=== PATIENT | female | born 1945 | race Caucasian/White ===

== ENCOUNTER → 2016-06-13 | Outpatient (CLI) | payer MEDICARE ==
[2016-06-13 13:14] LABS: Calcium 9.3 mg/dL (8.4-10.2)
[2016-06-14 05:53] LABS: Cardiolipin Ab IgG <9.0 GPL (<15); Cardiolipin Ab IgM 26.1 MPL (<12.5)
== END | disposition home or self-care (01) ==
LOC: LABWHC1 12:29
PROVIDERS: ATTEND Psychiatry & Neurology Neurology
DX: E03.9 Hypothyroidism, unspecified (principal); G24.4 Idiopathic orofacial dystonia
CPT/HCPCS: 36415; 82310; 84439; 84443; 84450; 84460; 86038; 86147

== ENCOUNTER → 2016-10-30 | Outpatient (CLI) | payer MEDICARE ==
[2016-10-30 11:49] LABS: Partial Thromboplastin Time 25.1 sec (22.0-30.0); Prothrombin Time 10.1 sec (9.0-12.0)
== END ==
LOC: LABWHC1 11:05
PROVIDERS: ATTEND Psychiatry & Neurology Neurology
DX: G45.9 Transient cerebral ischemic attack, unspecified (principal); R41.3 Other amnesia
CPT/HCPCS: 36415; 82607; 82746; 83090; 85610; 85730

== ENCOUNTER → 2017-01-31 | Outpatient (CLI) | payer MEDICARE ==
--- NOTE | 2017-01-31 10:04 | CT ---
EXAMINATION TYPE: CT sinus wo con DATE OF EXAM: 01/31/2017 COMPARISON: NONE HISTORY: chronic sinusitis CT DLP: 641.60 mGycm. Automated Exposure Control for Dose Reduction was Utilized. TECHNIQUE: CT scan of the sinuses is performed without contrast, axial images are obtained, coronal r eformatted images are also reviewed. FINDINGS: Dental artifact results in exam. There is a nasal septal deviation. There is very mild mucosal thickening involving air cells. No air-fluid levels. Remaining paranasal s inuses are normal development and aeration. Moderate size marbella bullosa on the left The ostiomeatal complex is patent bilaterally on the coronal images. Visualized portion of mastoid air cells show no abnormal opacification. The globes are intact bilate rally. Intracranial atherosclerotic disease noted. Mild degenerative change noted intracranially. IMPRESSION: 1. Very mild chronic appearing ethmoidal sinusitis.
== END | disposition home or self-care (01) ==
LOC: RADCTMAIN 09:39
PROVIDERS: ATTEND Otolaryngology
DX: J32.2 Chronic ethmoidal sinusitis (principal)
CPT/HCPCS: 70486

== ENCOUNTER → 2017-11-18 | Outpatient (CLI) | payer MEDICARE ==
--- NOTE | 2017-11-18 16:40 | CONS ---
CONSULTATION Consultation for sleep apnea. 72-year-old female patient, who is coming in for sleep apnea evaluation. The patient has seen multiple physicians including Dr. Smalls, Dr. Yap, and Dr. Tafoya. The patient has had chronic nasal congestion and rhinitis and drainage and she has undergone various treatments without any help. She has undergone previous sinus surgery for deviated septum and functional endoscopic sinus surgery. She has been diagnosed having environmental allergies and she was given briefly allergy shots. For now she having excessive rhinitis which is constant and chronic and debilitating and she has had evaluations with ENT without much help in terms of symptomatic control. As part of her workup she has undergone a bronchoscopy and EGD by Dr. Smalls and Dr. Tafoya respectively and findings were essentially negative other than some degree of tracheobronchomalacia. She has chronic cough. She has loud snoring. She has sleep fragmentation, wakes up choking and gasping for air. She has nocturia and she has excessive daytime sleepiness and tiredness during the day. She is going to bed around midnight and waking up at 8 o'clock in the morning. [place] score is currently at 15. No facial pain or recurrent sinus infections. Constant clear postnasal drainage as reported by the patient and her . No exertional dyspnea. No hemoptysis or pleurisy. The patient has no recent weight gain or weight loss. Weight has been stable. She wakes up on multiple occasions throughout the night at least 4-6 times that she can recall either from cough or excessive nasal congestion and mucus buildup in the posterior oropharynx. She sleeps with the head of the bed elevated and she has tried to sleep on her side. PAST MEDICAL HISTORY: 1. Chronic rhinitis. 2. Chronic cough. 3. Tracheobronchomalacia. 4. Chronic sinus disease. 5. Acid reflux. 6. Hyperlipidemia. PAST SURGICAL HISTORY: Includes sinus surgery x2. Appendectomy. Hysterectomy. DRUG ALLERGIES: Not known. She is known to have MULTIPLE OUTDOOR ENVIRONMENTAL ALLERGENS. OUTPATIENT MEDICATION: Include levothyroxine 100 mcg p.o. daily, Zocor 20 mg p.o. daily, Flonase on an as- needed basis. She has also tried omeprazole 20 mg p.o. daily, Singular 10 mg p.o. daily, Juliet 180 mg p.o. daily and Mucinex without much help. SOCIAL HISTORY: Nonsmoker, no history of alcohol, no history of IV drugs. FAMILY HISTORY: Noncontributory. REVIEW OF SYSTEMS: 12-point review of system was done. Positive findings are mentioned above history of present illness. PHYSICAL EXAMINATION: BP is 143/72, pulse 72, respirations 14, temperature 98.2, saturation 98% on room air. Weight is 136, height 61 inches and [place] score 13. BMI 25.2 GENERAL APPEARANCE: Calm, comfortable. Head is atraumatic normocephalic. NECK: Supple. There is no JVD. No goiter. No neck masses. LUNGS: Clear to auscultation. HEART: Sounds regular rhythm. Normal S1, S2. No S3. No murmurs. ABDOMEN: Soft, nontender. No organomegaly. EXTREMITIES: No edema. No cyanosis or clubbing. IMPRESSION: 1. Obstructive sleep apnea suspected currently under investigation. We will proceed with a home sleep study. 2. Chronic cough. 3. Chronic rhinitis and postnasal drainage. 4. Chronic acid reflux. 5. Tracheobronchomalacia. 6. Hypothyroidism. 7. Hyperlipidemia. PLAN: 1. Work with ENT regarding her symptoms of chronic rhinitis. 2. Proceed with a home sleep study to investigate this patient for any symptomatic obstructive sleep apnea and treat accordingly. MMODL / IJN: [id number] /
== END ==
LOC: SLEEP 14:55
PROVIDERS: ATTEND Internal Medicine Critical Care Medicine
DX: G47.33 Obstructive sleep apnea (adult) (pediatric) (principal); R05 Cough; J31.0 Chronic rhinitis; R09.82 Postnasal drip; K21.9 Gastro-esophageal reflux disease without esophagitis; E03.9 Hypothyroidism, unspecified; E78.5 Hyperlipidemia, unspecified; M83.8 Other adult osteomalacia; J39.8 Other specified diseases of upper respiratory tract; Z79.899 Other long term (current) drug therapy; Z91.09 Other allergy status, other than to drugs and biological substances
CPT/HCPCS: 99211

== ENCOUNTER → 2018-02-10 | Outpatient (CLI) | payer MEDICARE ==
--- NOTE | 2018-02-11 14:35 | MM ---
Reason for exam: screening (asymptomatic). Last mammogram was performed 2 years and 8 months ago. History: Patient is postmenopausal. Physical Findings: A clinical breast exam by your physician is recommended on an annual basis and results should be correlated with mammographic findings. MG Screening Mammo w CAD Bilateral CC and MLO view(s) were taken. Prior study comparison: June 23, 2015, bilateral MG screening mammo w CAD. April 15, 2013, bilateral digital screening mammo w/CAD. There are scattered fibroglandular densities. No significant changes when compared with prior studies. ASSESSMENT: Negative, BI-RAD 1 RECOMMENDATION: Routine screening mammogram of both breasts in 1 year.
== END | disposition home or self-care (01) ==
LOC: RADMAMWWP 14:07
PROVIDERS: ATTEND Internal Medicine
DX: Z12.31 Encounter for screening mammogram for malignant neoplasm of breast (principal)
CPT/HCPCS: 77067

== ENCOUNTER → 2018-08-05 | Outpatient (CLI) | payer MEDICARE ==
--- NOTE | 2018-08-05 15:02 | CT ---
EXAMINATION TYPE: CT chest wo con DATE OF EXAM: 08/05/2018 COMPARISON: 01/25/2016 HISTORY: Chronic cough. CT DLP: 459 mGycm. Automated Exposure Control for Dose Reduction was Utilized. TECHNIQUE: CT scan of the thorax is performed without IV contrast. FINDINGS: LUNGS: There is redemonstration of a calcified benign granuloma in the right upper lobe on series 4 i mage 27 laterally unchanged from the prior. The previously seen noncalcified 4 mm pulmonary nodule wi thin the right lower lobe is only vaguely seen on today's examination on series 4 image 37 measuring 2 mm. Given its decreased size in comparison to the prior 16 this is benign. The lungs are grossly cl ear, there is no concerning parenchymal mass or nodule identified. There is no pleural effusion or pneumothorax seen. The tracheobronchial tree is patent. MEDIASTINUM: Lack of IV contrast is noted to limit evaluation for mediastinal and especially hilar ad enopathy. There are no definitive greater than 1 cm hilar or mediastinal lymph nodes. No cardiomega ly or pericardial effusion is seen. OTHER: There are greater than 30 hypoattenuated hepatic lesions some of which 6 criteria for simple c ysts and others are too small to accurately characterize. The largest is seen in segment 8 measuring 1.2 cm relating to a simple cyst. Few of these are appreciated on the prior of 01/25/2016 however give n the high-resolution technique in only partial visualization of the liver without contrast there is suboptimal comparison made. Extensive atherosclerosis of the upper abdominal aorta and its branches i s noted. Benign splenules are seen. Very small hiatal hernia is suspected. Partial visualization of a 1.5 cm probable left renal cyst. Minimal multilevel degenerative changes of the thoracic spine are s een. IMPRESSION: 1. Greater than 30 hypoattenuated hepatic lesions are present some of which represent cysts and other which are too small to accurately characterize. These are not definitively seen on the prior examina tions although there is suboptimal comparison with the prior chest CT given high-resolution noncontra st technique. Recommendation is for three-phase abdominal CT or MR for further assessment. 2. Benign calcified granuloma and benign noncalcified right pulmonary nodules. 3. Suggestion of a small hiatal hernia. 4. Nonobstructing right renal calculus.
== END | disposition home or self-care (01) ==
LOC: RADCTMAIN 14:25
PROVIDERS: ATTEND Internal Medicine
DX: J84.10 Pulmonary fibrosis, unspecified (principal); R91.8 Other nonspecific abnormal finding of lung field; Z88.2 Allergy status to sulfonamides
CPT/HCPCS: 71250

== ENCOUNTER 2018-08-24 11:14 | Inpatient (IN) | payer MEDICARE ==
[2018-08-24] MEDS ORDERED: SODIUM CHLORIDE 0.9% 500 ML 500 ML IV STA (11:19)
--- NOTE | 2018-08-24 11:23 | ED ---
General Adult HPI - General Stated complaint: Weakness, SOB Time Seen by Provider: 08/24/18 11:14 Source: RN notes reviewed - History of Present Illness Initial comments: This is a 73-year-old female who presents emergency Department for generalized weakness. According to the she been unable to walk the last couple days because she was too weak to stand. Patient states she's also short of breath and has been coughing for a few months now with some sputum production. Patient states she has followed up with a office messenger helper but they have not found anything. Patient states she also is coughed up blood on occasion. Patient states a week ago she had diarrhea and was very dark. Patient denies any blood thinners. Patient denies every having been anemic before. Patient denies any chest pain or palpitations. Patient denies any abdominal pain patient denies any current nausea vomiting or diarrhea. Patient denies any headache patient denies numbness weakness. Patient states she does feel lightheaded when she stands however. She denies any recent injury or trauma. - Related Data Home Medications Medication Instructions Recorded Confirmed Aspirin [Adult Low Dose Aspirin EC] 81 mg PO DAILY 11/28/15 08/24/18 Levothyroxine Sodium [Synthroid] 100 mcg PO MOWEFR 11/28/15 08/24/18 Cholecalciferol [Vitamin D3] 2,000 unit PO DAILY 02/06/16 08/24/18 Omeprazole 20 mg PO DAILY 02/06/16 08/24/18 Atorvastatin [Lipitor] 40 mg PO HS 03/24/18 08/24/18 Levothyroxine Sodium 150 mcg PO SUTUTHSA 03/24/18 08/24/18 Mirtazapine [Remeron] 15 mg PO HS 08/24/18 08/24/18 diphenhydrAMINE HCL [Benadryl] 25 mg PO DAILY 08/24/18 08/24/18 Allergies Allergy/AdvReac Type Severity Reaction Status Date / Time Sulfa (Sulfonamide Allergy Unknown Verified 08/24/18 11:55 Antibiotics) Review of Systems ROS Statement: Those systems with pertinent positive or pertinent negative responses have been documented in the HPI. ROS Other: All systems not noted in ROS Statement are negative. Past Medical History Past Medical History: Diabetes Mellitus, GERD/Reflux, Osteoarthritis (OA), Renal Disease, Thyroid Disorder Additional Past Medical History / Comment(s): HAVING CLEAR MUCUS PRODUCTIVE COUGH FOR X 6 MOS,HAVING CT OF LIVER TO ASSESS NODULE, LUNG NODULE,DIABETIC-DIET CONTROLLED-AND 50 # WT LOSS. MIGRAINES. History of Any Multi-Drug Resistant Organisms: None Reported Past Surgical History: Appendectomy, Hysterectomy Additional Past Surgical History / Comment(s): BILATERAL CATARACTS/LENS IMPLANT. DEVIATED SEPTUM X 2. PAIN PROCEDURE (NECK). Past Anesthesia/Blood Transfusion Reactions: No Reported Reaction Additional Past Anesthesia/Blood Transfusion Reaction / Comment(s): HX MULT BLOOD TRANSFUSIONS AT AGE 1 WITHOUT DIFF. Smoking Status: Former smoker - Past Family History Mother Family Medical History: Cancer Additional Family Medical History / Comment(s): LUNG CA. Sister(s) Family Medical History: Cancer Additional Family Medical History / Comment(s): RECTAL Father Family Medical History: Myocardial Infarction ([place]) General Exam - General Exam Comments Initial Comments: GENERAL: Patient is well-developed and well-nourished. Patient is nontoxic and well- hydrated and is in mild distress. ENT: Neck is soft and supple. No significant lymphadenopathy is noted. Oropharynx is clear. Moist mucous membranes. Neck has full range of motion without eliciting any pain. EYES: The sclera were anicteric and conjunctiva were pink and moist. Extraocular movements were intact and pupils were equal round and reactive to light. Eyelids were unremarkable. PULMONARY: Unlabored respirations. Good breath sounds bilaterally. No audible rales rhonchi or wheezing was noted. CARDIOVASCULAR: Patient is tachycardic at about 105 beats a minute ABDOMEN: Soft and nontender with normal bowel sounds. No palpable organomegaly was noted. There is no palpable pulsatile mass. SKIN: Patient's skin is pale NEUROLOGIC: Patient is alert and oriented x3. Cranial nerves II through XII are grossly intact. Motor and sensory are also intact. Normal speech, volume and content. Symmetrical smile. MUSCULOSKELETAL: Normal extremities with adequate strength and full range of motion. No lower extremity swelling or edema. No calf tenderness. LYMPHATICS: No significant lymphadenopathy is noted PSYCHIATRIC: Normal psychiatric evaluation. Course Vital Signs 08/24/18 08/24/18 11:16 11:41 Temperature 97.3 F L Pulse Rate 99 92 Respiratory 18 18 Rate Blood Pressure 135/58 126/61 O2 Sat by Pulse 96 99 Oximetry Medical Decision Making - Medical Decision Making Patient's hemoglobin was 5.4 and she was positive for blood in her stool. I gave the patient 2 units of packed red blood cells. I spoke with some physicians agreed to admit the patient admitted the patient. EKG shows a sinus rhythm with occasional PVC at 90 beats a minute AK interval is 134 QRS is 86 QT interval 412 QTC is 504. Patient's EKG shows no ST segment elevation or depression or T wave abnormalities are noted. - Lab Data Result diagrams: 08/24/18 11:32 08/24/18 11:32 Lab Results 08/24/18 08/24/18 08/24/18 Range/Units 11:32 11:32 11:32 WBC 3.5 L (3.8-10.6) k/uL RBC 1.61 L (3.80-5.40) m/uL Hgb 5.4 L* (11.4-16.0) gm/dL Hct 15.7 L* (34.0-46.0) % MCV 97.4 (80.0-100.0) fL MCH 33.8 (25.0-35.0) pg MCHC 34.7 (31.0-37.0) g/dL RDW 17.3 H (11.5-15.5) % Plt Count 204 (150-450) k/uL Neutrophils % 60 % Lymphocytes % 26 % Monocytes % 7 % Eosinophils % 5 % Basophils % 0 % Neutrophils # 2.1 (1.3-7.7) k/uL Lymphocytes # 0.9 L (1.0-4.8) k/uL Monocytes # 0.2 (0-1.0) k/uL Eosinophils # 0.2 (0-0.7) k/uL Basophils # 0.0 (0-0.2) k/uL Poikilocytosis Slight Anisocytosis Slight Macrocytosis Slight PT (9.0-12.0) sec INR (<1.2) APTT (22.0-30.0) sec D-Dimer (<0.60) mg/L FEU Sodium 137 (137-145) mmol/L Potassium 4.5 (3.5-5.1) mmol/L Chloride 107 (98-107) mmol/L Carbon Dioxide 25 (22-30) mmol/L Anion Gap 5 mmol/L BUN 28 H (7-17) mg/dL Creatinine 0.71 (0.52-1.04) mg/dL Est GFR (CKD-EPI)AfAm >90 (>60 ml/min/1.73 sqM) Est GFR (CKD-EPI)NonAf 84 (>60 ml/min/1.73 sqM) Glucose 189 H (74-99) mg/dL Plasma Lactic Acid Terence 1.2 (0.7-2.0) mmol/L Calcium 8.9 (8.4-10.2) mg/dL Magnesium 1.6 (1.6-2.3) mg/dL Total Bilirubin 0.7 (0.2-1.3) mg/dL AST 21 (14-36) U/L ALT 24 (9-52) U/L Alkaline Phosphatase 42 (38-126) U/L Total Protein 5.3 L (6.3-8.2) g/dL Albumin 3.2 L (3.5-5.0) g/dL Stool Occult Blood (Negative) 08/24/18 08/24/18 Range/Units 11:32 11:32 WBC (3.8-10.6) k/uL RBC (3.80-5.40) m/uL Hgb (11.4-16.0) gm/dL Hct (34.0-46.0) % MCV (80.0-100.0) fL MCH (25.0-35.0) pg MCHC (31.0-37.0) g/dL RDW (11.5-15.5) % Plt Count (150-450) k/uL Neutrophils % % Lymphocytes % % Monocytes % % Eosinophils % % Basophils % % Neutrophils # (1.3-7.7) k/uL Lymphocytes # (1.0-4.8) k/uL Monocytes # (0-1.0) k/uL Eosinophils # (0-0.7) k/uL Basophils # (0-0.2) k/uL Poikilocytosis Anisocytosis Macrocytosis PT 9.6 (9.0-12.0) sec INR 0.9 (<1.2) APTT 22.7 (22.0-30.0) sec D-Dimer 0.47 (<0.60) mg/L FEU Sodium (137-145) mmol/L Potassium (3.5-5.1) mmol/L Chloride (98-107) mmol/L Carbon Dioxide (22-30) mmol/L Anion Gap mmol/L BUN (7-17) mg/dL Creatinine (0.52-1.04) mg/dL Est GFR (CKD-EPI)AfAm (>60 ml/min/1.73 sqM) Est GFR (CKD-EPI)NonAf (>60 ml/min/1.73 sqM) Glucose (74-99) mg/dL Plasma Lactic Acid Terence (0.7-2.0) mmol/L Calcium (8.4-10.2) mg/dL Magnesium (1.6-2.3) mg/dL Total Bilirubin (0.2-1.3) mg/dL AST (14-36) U/L ALT (9-52) U/L Alkaline Phosphatase (38-126) U/L Total Protein (6.3-8.2) g/dL Albumin (3.5-5.0) g/dL Stool Occult Blood Positive H (Negative) Critical Care Time Critical Care Time: Yes Total Critical Care Time: 35 Disposition Clinical Impression: GI bleed, Symptomatic anemia Disposition: ADMITTED IP TO THIS HOSP Referrals: Jl Cooper MD [Primary Care Provider] - 1-2 days Time of Disposition: 11:59
[2018-08-24 11:51] LABS: Anisocytosis Slight; Basophils % (A) 0 %; Eosinophils # (A) 0.2 k/uL (0-0.7); Eosinophils % (A) 5 %; Lymphocytes # (A) 0.9 k/uL (1.0-4.8); Lymphocytes % (A) 26 %; MCH 33.8 pg (25.0-35.0); MCHC 34.7 g/dL (31.0-37.0); MCV 97.4 fL (80.0-100.0); Macrocytosis Slight; Mean Platelet Volume 7.5; Monocytes # (A) 0.2 k/uL (0-1.0); Monocytes % (A) 7 %; Neutrophils # (A) 2.1 k/uL (1.3-7.7); Neutrophils % (A) 60 %; Platelet Count 204 k/uL (150-450); Poikilocytosis Slight; RBC 1.61 m/uL (3.80-5.40); RDW 17.3 % (11.5-15.5); WBC 3.5 k/uL (3.8-10.6)
[2018-08-24 11:52] LABS: HGB 5.4 gm/dL (11.4-16.0)
[2018-08-24 11:53] LABS: HCT 15.7 % (34.0-46.0)
[2018-08-24 11:57] LABS: ALT 24 U/L (9-52); AST 21 U/L (14-36); Albumin 3.2 g/dL (3.5-5.0); Alkaline Phosphatase 42 U/L (38-126); Anion Gap 5 mmol/L; Blood Urea Nitrogen 28 mg/dL (7-17); Calcium 8.9 mg/dL (8.4-10.2); Carbon Dioxide 25 mmol/L (22-30); Chloride 107 mmol/L (98-107); Glucose 189 mg/dL (74-99); Magnesium 1.6 mg/dL (1.6-2.3); Potassium 4.5 mmol/L (3.5-5.1); Sodium 137 mmol/L (137-145); Total Bilirubin 0.7 mg/dL (0.2-1.3); Total Protein 5.3 g/dL (6.3-8.2)
[2018-08-24] MEDS ORDERED: SODIUM CHLORIDE 0.9% 1,000 ML IV ONE (12:00)
[2018-08-24 12:09] LABS: D-Dimer 0.47 mg/L FEU (<0.60); INR 0.9 (<1.2); Partial Thromboplastin Time 22.7 sec (22.0-30.0); Prothrombin Time 9.6 sec (9.0-12.0)
--- NOTE | 2018-08-24 12:30 | XR ---
EXAMINATION TYPE: XR chest 2V DATE OF EXAM: 08/24/2018 COMPARISON: CT chest August 05, 2018. Two-view chest x-ray July 30, 2018. HISTORY: Weakness and shortness of breath. TECHNIQUE: Frontal and lateral views of the chest are obtained. FINDINGS: Overlying EKG leads are seen currently. There is no focal air space opacity, pleural effus ion, or pneumothorax seen. The cardiac silhouette size remains within normal limits with atheroscler otic change in thoracic aorta. Spine is straightened on lateral view. IMPRESSION: No acute cardiopulmonary process.
[2018-08-24] MEDS ORDERED: PANTOPRAZOLE 40 MG/10 ML VIAL IVP ONE (14:22)
--- NOTE | 2018-08-24 16:04 | P.HPIM ---
History of Present Illness H&P Date: 08/24/18 Chief Complaint: black tarry stool 73 year old female with history of GERD, hypothyroid, and history of diverticulosis patient presented to the ED with 4 days history of feeling weak and tired. postural dizziness and fatigue. today she was feeling short of breath and husb and grew more concerned and decided to bring her to the hospital . He also reports productive cough of few months duration , she has been evaluated by ENT and pulmonary , and nothing was found. she had some sinus surgery done at one point and since then she felt that she is having increased bloody drainage at time in her throat. She also reports diarrhea of black color over the past few days multiple times per day, she denies any concerning abd pain , but does report some epigastric discomfort. she admits to taking alot of NSAIDS in the form of advil and motrin , at times on empty stomach , for migraine headaches, she also would take aleve for her joints. She takes 2 baby aspirins on daily basis. Patient reports history of EGD many years ago and was diagnosed with peptic ulcer , hiatal hernia and GERD at that time. she also had a colonoscopy done which did show diverticulosis and polyp. but no malignancy has been reported. She also reports history of odynophagia and dysphagia at times, with recent subjective weight loss In the ED , she was found to be guiac positive, and had a hemoglobin of 5.4. blood transfusion initiated and admitted for GI evaluation and possible EGD otherwise she currently denies any chest pain , fever, chills, nausea, vomiting, or hematamesis . Review of Systems Pertinent positives as noted in HPI. All other systems were reviewed and are negative Past Medical History Past Medical History: Diabetes Mellitus, GERD/Reflux, Osteoarthritis (OA), Renal Disease, Thyroid Disorder Additional Past Medical History / Comment(s): HAVING CLEAR MUCUS PRODUCTIVE COUGH FOR X 6 MOS,HAVING CT OF LIVER TO ASSESS NODULE, LUNG NODULE,DIABETIC-DIET CONTROLLED-AND 50 # WT LOSS. MIGRAINES. History of Any Multi-Drug Resistant Organisms: None Reported Past Surgical History: Appendectomy, Hysterectomy Additional Past Surgical History / Comment(s): BILATERAL CATARACTS/LENS IMPLANT. DEVIATED SEPTUM X 2. PAIN PROCEDURE (NECK). Past Anesthesia/Blood Transfusion Reactions: No Reported Reaction Additional Past Anesthesia/Blood Transfusion Reaction / Comment(s): HX MULT BLOOD TRANSFUSIONS AT AGE 1 WITHOUT DIFF. Smoking Status: Former smoker - Past Family History Mother Family Medical History: Cancer Additional Family Medical History / Comment(s): LUNG CA. Sister(s) Family Medical History: Cancer Additional Family Medical History / Comment(s): RECTAL Father Family Medical History: Myocardial Infarction ([place]) Medications and Allergies Home Medications Medication Instructions Recorded Confirmed Type Aspirin [Adult Low Dose Aspirin EC] 81 mg PO DAILY 11/28/15 08/24/18 History Levothyroxine Sodium [Synthroid] 100 mcg PO MOWEFR 11/28/15 08/24/18 History Cholecalciferol [Vitamin D3] 2,000 unit PO DAILY 02/06/16 08/24/18 History Omeprazole 20 mg PO DAILY 02/06/16 08/24/18 History Atorvastatin [Lipitor] 40 mg PO HS 03/24/18 08/24/18 History Levothyroxine Sodium 150 mcg PO SUTUTHSA 03/24/18 08/24/18 History Mirtazapine [Remeron] 15 mg PO HS 08/24/18 08/24/18 History diphenhydrAMINE HCL [Benadryl] 25 mg PO DAILY 08/24/18 08/24/18 History Allergies Allergy/AdvReac Type Severity Reaction Status Date / Time Sulfa (Sulfonamide Allergy Unknown Verified 08/24/18 11:55 Antibiotics) Physical Exam Vitals: Vital Signs Temp Pulse Resp BP Pulse Ox 08/24/18 11:41 92 18 126/61 99 08/24/18 11:16 97.3 F L 99 18 135/58 96 Intake and Output 08/23/18 08/24/18 08/24/18 22:59 06:59 14:59 Other: Weight 61.235 kg Constitutional: No acute distress, conversant, pleasant Eyes: Anicteric sclerae, moist conjunctiva, no lid-lag Pupils equal round reactive to light ENMT: NC/AT Oropharynx clear, no erythema, or exudates Neck: Supple, FROM, no masses, or JVD No carotid bruits No thyromegaly Lungs: Clear to auscultation Clear to percussion Normal respiratory effort, no accessory muscle use Cardiovascular: Heart regular in rate and rhythm, No murmurs, gallops, or rubs No peripheral edema Abdominal: Soft discomfort to palpation of the epigastric region , no guarding, rebound or rigidity Abdomen moving with respiration Normoactive bowel sounds No hepatomegaly, No splenomegaly No palpable mass No abdominal wall hernia noted Skin: Normal temperature, tone, texture, turgor No induration No subcutaneous nodules No rash, lesions No ulcers Extremities: No digital cyanosis No clubbing Pedal pulses intact and symmetrical Radial pulses intact and symmetrical No calf tenderness Psychiatric: Alert and oriented to person, place and time Appropriate affect fair judgment Neuro Muscles Strength 5/5 in all 4 extremities Sensation to light touch grossly present throughout Cranial nerves II-XII grossly intact No focal sensory deficits Lymphatics: no palpable cervical or supraclavicular , or inguinal lymph nodes Results CBC & Chem 7: 08/24/18 11:32 08/24/18 11:32 Labs: Abnormal Lab Results - Last 24 Hours (Table) 08/24/18 08/24/18 08/24/18 Range/Units 11:32 11:32 11:32 WBC 3.5 L (3.8-10.6) k/uL RBC 1.61 L (3.80-5.40) m/uL Hgb 5.4 L* (11.4-16.0) gm/dL Hct 15.7 L* (34.0-46.0) % RDW 17.3 H (11.5-15.5) % Lymphocytes # 0.9 L (1.0-4.8) k/uL BUN 28 H (7-17) mg/dL Glucose 189 H (74-99) mg/dL Total Protein 5.3 L (6.3-8.2) g/dL Albumin 3.2 L (3.5-5.0) g/dL Stool Occult Blood Positive H (Negative) Crossmatch 08/24/18 Range/Units 11:32 WBC (3.8-10.6) k/uL RBC (3.80-5.40) m/uL Hgb (11.4-16.0) gm/dL Hct (34.0-46.0) % RDW (11.5-15.5) % Lymphocytes # (1.0-4.8) k/uL BUN (7-17) mg/dL Glucose (74-99) mg/dL Total Protein (6.3-8.2) g/dL Albumin (3.5-5.0) g/dL Stool Occult Blood (Negative) Crossmatch See Detail Assessment and Plan Assessment: 73-year-old female with history of and peptic ulcer admitted as an inpatient with anticipated length of stay more than 48 hours due to severe anemia secondary to acute GI blood loss. Seems like patient takes NSAIDs at home on empty stomach at times due to migraine headaches. Patient admitted for blood transfusion IV fluid hydration and GI evaluation for possible EGD. Plan: Acute symptomatic anemia secondary to GI bleeding 2/2 NSAIDs Supportive care Nothing by mouth GI evaluation for possible EGD PPI IV Transfuse 2 units of blood CBC every 8 hours Fall precautions hold aspirin hold NSAIDs IVF hydration Dysphgia and odynophagia at times GI evaluation Low back pain with possible kidney stone pain control with opiates as needed Chronic conditions hypothyroidsim DM dietry controlle,d continue with insulin sliding scale GERD migraine headaches Surrogate decision-maker: Patient CODE STATUS: Full code Discussed with: Patient, ER, RN Anticipated discharge: 48-[address]: home A total of 60 minutes was spent on the care of this complex patient more than 50% of the time was spent in counseling and care coordination.
[2018-08-24 16:53] LABS: Glucose,Whole Blood 119 mg/dL (75-99)
[2018-08-24] MEDS: LEVOTHYROXINE 100 MCG TAB PO SCH (17:07)
[2018-08-24] MEDS: INSULIN ASPART (NovoLOG) 100 UNIT/ML VIAL SQ SCH ×2 (17:08→20:11)
[2018-08-24 17:12] LABS: Anisocytosis Slight; MCHC 34.2 g/dL (31.0-37.0); MCV 93.5 fL (80.0-100.0); Mean Platelet Volume 7.7; Platelet Count 167 k/uL (150-450); Poikilocytosis Slight; RBC 2.09 m/uL (3.80-5.40); RDW 17.5 % (11.5-15.5); WBC 3.7 k/uL (3.8-10.6)
[2018-08-24 17:14] LABS: HCT 19.5 % (34.0-46.0); HGB 6.7 gm/dL (11.4-16.0)
[2018-08-24] MEDS: PANTOPRAZOLE 40 MG/10 ML VIAL IVP SCH (18:11)
[2018-08-24 20:10] LABS: Glucose,Whole Blood 128 mg/dL (75-99)
[2018-08-25 00:50] LABS: Anisocytosis Slight; HCT 23.8 % (34.0-46.0); MCH 33.1 pg (25.0-35.0); MCHC 35.8 g/dL (31.0-37.0); MCV 92.3 fL (80.0-100.0); Mean Platelet Volume 7.5; Platelet Count 158 k/uL (150-450); Poikilocytosis Slight; RBC 2.57 m/uL (3.80-5.40); WBC 4.2 k/uL (3.8-10.6)
[2018-08-25 01:04] LABS: HGB 8.5 gm/dL (11.4-16.0)
[2018-08-25 03:43] LABS: Hemoglobin A1C 6.5 % (4.0-6.0)
[2018-08-25 03:59] LABS: Appearance,Urine Clear (Clear); Bilirubin,Urine Negative (Negative); Blood,Urine Negative (Negative); Color,Urine Light Yellow; Glucose,Urine (UA) Negative (Negative); Ketones,Urine Negative (Negative); Leukocyte Esterase,Urine Negative (Negative); Nitrite,Urine Negative (Negative); Protein,Urine Negative (Negative); Specific Gravity,Urine 1.006 (1.001-1.035); Urobilinogen,Urine <2.0 mg/dL (<2.0)
[2018-08-25] MEDS: INSULIN ASPART (NovoLOG) 100 UNIT/ML VIAL SQ SCH ×4 (06:36→21:32)
[2018-08-25] MEDS: LEVOTHYROXINE 50 MCG TAB PO SCH (06:38)
[2018-08-25 06:55] LABS: Glucose,Whole Blood 130 mg/dL (75-99)
--- NOTE | 2018-08-25 07:33 | P.PN ---
Subjective Progress Note Date: 08/25/18 Principal diagnosis: Follow-up for acute symptomatic anemia secondary to GI blood loss Patient seen and examined no reports of further bloody bowel movements, patient denies any chest pain or trouble breathing. She continues to be nothing by mouth awaiting EGD Objective - Vital Signs Vital signs: Vital Signs Temp 98.0 F 08/25/18 04:00 Pulse 86 08/25/18 04:00 Resp 16 08/25/18 04:00 BP 156/62 08/25/18 04:00 Pulse Ox 97 08/25/18 04:00 Intake & Output 08/24/18 08/25/18 08/25/18 18:59 06:59 18:59 Intake Total 310 310 Output Total 400 Balance 310 -90 Weight 61.235 kg 62.8 kg Intake: Oral 0 Blood Product 310 310 Rc As-1 Unit 310 [id number] Rc As-1 Unit 0 310 [id number] Output: Urine 400 Other: Voiding Method Toilet Toilet # Voids 1 2 - Exam Constitutional: vital signs stable, Not in acute distress, pleasant, conversant Lungs: Clear to auscultation bilaterally, clear to percussion, normal respiratory effort no use of accessory muscles Cardiovascular: Regular rate and rhythm, no murmurs, no gallops, no rubs, no peripheral edema Gastrointestinal: Soft, discomfort and mild tenderness to deep palpation of the epigastric region , bowel sounds positive, no abdominal wall hernias Extremities: No digital cyanosis or clubbing, peripheral pulses palpable and equal over bilateral radial arteries and dorsalis pedis artery, no calf muscle tenderness Psych: Alert, oriented to place, person and time, appropriate affect, intact judgment - Labs CBC & Chem 7: 08/25/18 07:35 08/24/18 11:32 Labs: Abnormal Lab Results - Last 24 Hours (Table) 08/24/18 08/24/18 08/24/18 Range/Units 11:32 11:32 11:32 WBC 3.5 L (3.8-10.6) k/uL RBC 1.61 L (3.80-5.40) m/uL Hgb 5.4 L* (11.4-16.0) gm/dL Hct 15.7 L* (34.0-46.0) % RDW 17.3 H (11.5-15.5) % Lymphocytes # 0.9 L (1.0-4.8) k/uL BUN 28 H (7-17) mg/dL Glucose 189 H (74-99) mg/dL POC Glucose (mg/dL) (75-99) mg/dL Hemoglobin A1c (4.0-6.0) % Total Protein 5.3 L (6.3-8.2) g/dL Albumin 3.2 L (3.5-5.0) g/dL Stool Occult Blood Positive H (Negative) Crossmatch 08/24/18 08/24/18 08/24/18 Range/Units 11:32 16:45 16:48 WBC 3.7 L (3.8-10.6) k/uL RBC 2.09 L (3.80-5.40) m/uL Hgb 6.7 L* (11.4-16.0) gm/dL Hct 19.5 L* (34.0-46.0) % RDW 17.5 H (11.5-15.5) % Lymphocytes # (1.0-4.8) k/uL BUN (7-17) mg/dL Glucose (74-99) mg/dL POC Glucose (mg/dL) 119 H (75-99) mg/dL Hemoglobin A1c (4.0-6.0) % Total Protein (6.3-8.2) g/dL Albumin (3.5-5.0) g/dL Stool Occult Blood (Negative) Crossmatch See Detail 08/24/18 08/24/18 08/25/18 Range/Units 16:48 20:08 00:25 WBC (3.8-10.6) k/uL RBC 2.57 L (3.80-5.40) m/uL Hgb 8.5 L D (11.4-16.0) gm/dL Hct 23.8 L (34.0-46.0) % RDW 17.0 H (11.5-15.5) % Lymphocytes # (1.0-4.8) k/uL BUN (7-17) mg/dL Glucose (74-99) mg/dL POC Glucose (mg/dL) 128 H (75-99) mg/dL Hemoglobin A1c 6.5 H (4.0-6.0) % Total Protein (6.3-8.2) g/dL Albumin (3.5-5.0) g/dL Stool Occult Blood (Negative) Crossmatch 08/25/18 Range/Units 06:35 WBC (3.8-10.6) k/uL RBC (3.80-5.40) m/uL Hgb (11.4-16.0) gm/dL Hct (34.0-46.0) % RDW (11.5-15.5) % Lymphocytes # (1.0-4.8) k/uL BUN (7-17) mg/dL Glucose (74-99) mg/dL POC Glucose (mg/dL) 130 H (75-99) mg/dL Hemoglobin A1c (4.0-6.0) % Total Protein (6.3-8.2) g/dL Albumin (3.5-5.0) g/dL Stool Occult Blood (Negative) Crossmatch Assessment and Plan Assessment: 73-year-old female with history of and peptic ulcer admitted as an inpatient with anticipated length of stay more than 48 hours due to severe anemia secondary to acute GI blood loss. Seems like patient takes NSAIDs at home on empty stomach at times due to migraine headaches. Patient admitted for blood transfusion IV fluid hydration and GI evaluation for possible EGD. 08/25 no further episodes of bloody bowel movements. Patient's hemoglobin today is improved at 8.5 after 2 units blood transfusion yesterday, vital signs stable with slight tachycardia awaiting EGD today continue with PPI, nothing by mouth, supportive care Plan: Acute symptomatic anemia secondary to GI bleeding 2/2 NSAIDs Supportive care Nothing by mouth GI evaluation for possible EGD PPI IV Status post 2 unit blood transfusion, hemoglobin appropriately responded and today's up to 8.5 CBC every 8 hours Fall precautions hold aspirin hold NSAIDs IVF hydration Dysphgia and odynophagia at times GI evaluation Low back pain with possible kidney stone pain control with opiates as needed Chronic conditions hypothyroidsim DM dietry controlle,d continue with insulin sliding scale GERD migraine headaches DVT prophylaxis SCDs due to GI bleeding
[2018-08-25 08:22] LABS: Anisocytosis Slight; HGB 8.4 gm/dL (11.4-16.0); MCH 32.4 pg (25.0-35.0); MCHC 35.1 g/dL (31.0-37.0); MCV 92.3 fL (80.0-100.0); Mean Platelet Volume 7.6; Platelet Count 162 k/uL (150-450); Poikilocytosis Slight; WBC 3.5 k/uL (3.8-10.6)
[2018-08-25] MEDS: PANTOPRAZOLE 40 MG/10 ML VIAL IVP SCH ×2 (08:44→19:54)
--- NOTE | 2018-08-25 11:37 | P.CONS ---
History of Present Illness - Reason for Consult Consult date: 08/25/18 GI bleed anemia Requesting physician: Naima Mckeon - Chief Complaint Symptomatic anemia and melena - History of Present Illness 73-year-old female with a history of migraines maintained on multiple daily NSAIDs and 2 baby aspirin daily PPI presents with symptomatic anemia chest pain shortness of breath weakness 2 days melanotic bowel movements. Admission hemoglobin 5.4 received 2 units of blood present hemoglobin is 8.4. Previous hemoglobin in February was 14 range. No history of GI bleed. History of remote peptic ulcer disease more than 40 years ago. No history of gastric or bowel surgeries. Minimal abdominal discomfort. No emesis. Denies gross hematochezia. EGD colonoscopy 2-3 years ago according to family EGD reported hiatal hernia colonoscopy reported colonic diverticular disease no polyps removed. Review of Systems Constitutional: Denies fever, chills, sweats, weight gain, or loss. Weakness fatigue. HEENT: Negative for migraines, blurred vision or loss, earaches, drainage, tinnitus, oral mucosal lesions, dysphagia, or odynophagia. CARDIAC: Admitted with chest pain denies pain, arrhythmias, or palpitation. RESPIRATORY: Shortness of breath with movement exertion denies of breath, hemoptysis, cough, or sputum production. GI: See HPI for pertinent findings. : Negative for hematuria, urgency, frequency, polyuria, or dysuria. GYNc: Negative vaginal discharge. MUSCULOSKELETAL: Negative for muscle aches, swelling, arthritis, and arthralgias. NEUROLOGIC: Negative for stroke or TIA. ENDOCRINE: Negative for thyroid problems. SKIN: Negative for rash or itching. PSYCHIATRIC: Negative history for depression and anxiety Past Medical History Past Medical History: Diabetes Mellitus, GERD/Reflux, Osteoarthritis (OA), Renal Disease, Thyroid Disorder Additional Past Medical History / Comment(s): HAVING CLEAR MUCUS PRODUCTIVE COUGH FOR X 6 MOS,HAVING CT OF LIVER TO ASSESS NODULE, LUNG NODULE,DIABETIC-DIET CONTROLLED-AND 50 # WT LOSS. MIGRAINES. History of Any Multi-Drug Resistant Organisms: None Reported Past Surgical History: Appendectomy, Hysterectomy Additional Past Surgical History / Comment(s): BILATERAL CATARACTS/LENS IMPLANT. DEVIATED SEPTUM X 2. PAIN PROCEDURE (NECK). Past Anesthesia/Blood Transfusion Reactions: No Reported Reaction Additional Past Anesthesia/Blood Transfusion Reaction / Comm: HX MULT BLOOD TRANSFUSIONS AT AGE 1 WITHOUT DIFF. Smoking Status: Former smoker - Past Family History Mother Family Medical History: Cancer Additional Family Medical History / Comment(s): LUNG CA. Sister(s) Family Medical History: Cancer Additional Family Medical History / Comment(s): RECTAL Father Family Medical History: Myocardial Infarction ([place]) Additional Family Medical History / Comment(s): Father from a [place] in his early 70s. Medications and Allergies Home Medications Medication Instructions Recorded Confirmed Type Aspirin [Adult Low Dose Aspirin EC] 81 mg PO DAILY 11/28/15 08/24/18 History Levothyroxine Sodium [Synthroid] 100 mcg PO MOWEFR 11/28/15 08/24/18 History Cholecalciferol [Vitamin D3] 2,000 unit PO DAILY 02/06/16 08/24/18 History Omeprazole 20 mg PO DAILY 02/06/16 08/24/18 History Atorvastatin [Lipitor] 40 mg PO HS 03/24/18 08/24/18 History Levothyroxine Sodium 150 mcg PO SUTUTHSA 03/24/18 08/24/18 History Mirtazapine [Remeron] 15 mg PO HS 08/24/18 08/24/18 History diphenhydrAMINE HCL [Benadryl] 25 mg PO DAILY 08/24/18 08/24/18 History Allergies Allergy/AdvReac Type Severity Reaction Status Date / Time Sulfa (Sulfonamide Allergy Unknown Verified 08/24/18 11:55 Antibiotics) Physical Exam Vitals: Vital Signs Temp Pulse Pulse Resp BP BP Pulse Ox 08/25/18 11:28 96 16 08/25/18 08:53 96 16 08/25/18 08:52 98.3 F 96 16 144/76 95 08/25/18 04:00 98.0 F 86 16 156/62 97 08/25/18 03:48 84 15 08/25/18 00:00 84 15 08/24/18 23:51 98.3 F 84 15 150/70 98 08/24/18 20:14 98.4 F 89 16 170/56 98 08/24/18 20:12 98.4 F 89 16 170/56 98 08/24/18 20:00 98.4 F 89 16 170/57 98 08/24/18 18:29 98.2 F 92 18 158/71 98 08/24/18 17:59 98.1 F 92 18 160/73 98 08/24/18 17:49 98.9 F 94 18 165/74 98 08/24/18 16:22 98.0 F 85 18 148/0 98 08/24/18 15:12 98.0 F 85 18 148/80 98 08/24/18 14:30 98.2 F 82 18 161/74 98 08/24/18 13:42 98.8 F 91 18 138/59 99 08/24/18 13:12 98.7 F 92 18 129/56 99 08/24/18 13:02 98.7 F 92 18 130/59 99 08/24/18 12:58 98.7 F 93 18 128/59 08/24/18 11:41 92 18 126/61 99 Intake and Output 08/24/18 08/25/18 08/25/18 22:59 06:59 14:59 Intake Total 1220 0 Output Total 600 400 300 Balance 620 -400 -300 Intake: Intake, IV Titration 600 Amount Sodium Chloride 0.9% 1, 600 000 ml @ 100 mls/hr IV . Q10H ONE Rx#:[id number] Oral 0 0 Blood Product 620 Rc As-1 Unit 310 [id number] Rc As-1 Unit 310 [id number] Output: Urine 600 400 300 Other: Voiding Method Toilet Toilet Toilet # Voids 1 2 1 Weight 62.8 kg General appearance: The patient is alert, oriented, in no acute distress. HET: Head is normocephalic and atraumatic. Pupils are equal and reactive. Oropharynx is clear without lesions. Neck: Supple without lymphadenopathy. Trachea midline. Heart: S1 S2. Regular rate and rhythm. Lungs: No crackles or wheezes are heard. Abdomen: Soft, nontender, nondistended with bowel sounds. No peritoneal signs. No palpable organomegaly or masses. Extremities: Normal skin color and turgor. No cyanosis, rash, ulceration, clubbing, or edema. Radial and pedal pulses are 2/4 bilaterally. Neurological: No focal deficits. Strength and sensation are grossly intact. Results CBC & Chem 7: 08/25/18 07:35 08/24/18 11:32 Labs: Abnormal Lab Results - Last 24 Hours (Table) 08/24/18 08/24/1819 Range/Units 11:32 11:32 11:32 WBC 3.5 L (3.8-10.6) k/uL RBC 1.61 L (3.80-5.40) m/uL Hgb 5.4 L* (11.4-16.0) gm/dL Hct 15.7 L* (34.0-46.0) % RDW 17.3 H (11.5-15.5) % Lymphocytes # 0.9 L (1.0-4.8) k/uL BUN 28 H (7-17) mg/dL Glucose 189 H (74-99) mg/dL POC Glucose (mg/dL) (75-99) mg/dL Hemoglobin A1c (4.0-6.0) % Total Protein 5.3 L (6.3-8.2) g/dL Albumin 3.2 L (3.5-5.0) g/dL Stool Occult Blood Positive H (Negative) Crossmatch 08/24/18 08/24/18 08/24/18 Range/Units 11:32 16:45 16:48 WBC 3.7 L (3.8-10.6) k/uL RBC 2.09 L (3.80-5.40) m/uL Hgb 6.7 L* (11.4-16.0) gm/dL Hct 19.5 L* (34.0-46.0) % RDW 17.5 H (11.5-15.5) % Lymphocytes # (1.0-4.8) k/uL BUN (7-17) mg/dL Glucose (74-99) mg/dL POC Glucose (mg/dL) 119 H (75-99) mg/dL Hemoglobin A1c (4.0-6.0) % Total Protein (6.3-8.2) g/dL Albumin (3.5-5.0) g/dL Stool Occult Blood (Negative) Crossmatch See Detail 08/24/18 08/24/18 08/25/18 Range/Units 16:48 20:08 00:25 WBC (3.8-10.6) k/uL RBC 2.57 L (3.80-5.40) m/uL Hgb 8.5 L D (11.4-16.0) gm/dL Hct 23.8 L (34.0-46.0) % RDW 17.0 H (11.5-15.5) % Lymphocytes # (1.0-4.8) k/uL BUN (7-17) mg/dL Glucose (74-99) mg/dL POC Glucose (mg/dL) 128 H (75-99) mg/dL Hemoglobin A1c 6.5 H (4.0-6.0) % Total Protein (6.3-8.2) g/dL Albumin (3.5-5.0) g/dL Stool Occult Blood (Negative) Crossmatch 08/25/18 08/25/18 Range/Units 06:35 07:35 WBC 3.5 L (3.8-10.6) k/uL RBC 2.60 L (3.80-5.40) m/uL Hgb 8.4 L (11.4-16.0) gm/dL Hct 24.0 L (34.0-46.0) % RDW 17.0 H (11.5-15.5) % Lymphocytes # (1.0-4.8) k/uL BUN (7-17) mg/dL Glucose (74-99) mg/dL POC Glucose (mg/dL) 130 H (75-99) mg/dL Hemoglobin A1c (4.0-6.0) % Total Protein (6.3-8.2) g/dL Albumin (3.5-5.0) g/dL Stool Occult Blood (Negative) Crossmatch Assessment and Plan (1) GI bleed Narrative/Plan: Acute blood loss anemia melena with history of underlying colonic diverticulosis hiatal hernia, heavy NSAID use occluding daily baby aspirin for treatment of migraines possible peptic ulcer disease other considerations not limited to erosive gastritis esophagitis duodenitis possible small bowel source. Current Visit: Yes Status: Acute Code(s): K92.2 - GASTROINTESTINAL HEMORRHAGE, UNSPECIFIED SNOMED Code(s): 51475431 (2) Symptomatic anemia Current Visit: Yes Status: Acute Code(s): D64.9 - ANEMIA, UNSPECIFIED SNOMED Code(s): 738660084 Plan: 1. Protonix 40 mg twice daily. Hold aspirin and NSAIDs. EGD. CBC monitoring. The technical writer has discussed the risks, benefits and alternative therapies for the above-mentioned procedure and for both sedation/analgesia as well as necessary blood product administration, if indicated, as they pertain to this patient. The patient has indicated understanding and acceptance of the risks and procedures discussed. Thank you for this kind referral and the opportunity to participate in the care of your patient. This consultation was discussed with Dr. Gilbert. The impre ssion and plan of care have been directed as dictated.
[2018-08-25 12:02] LABS: Glucose,Whole Blood 131 mg/dL (75-99)
[2018-08-25] MEDS ORDERED: PROPOFOL 10 MG/ML 20 ML VIAL IV ONE (16:08)
[2018-08-25] MEDS ORDERED: LIDOCAINE 1% INJ 10MG/ML (20 ML MDV) ONE (16:08)
[2018-08-25] MEDS ORDERED: IV FLUID CONTINUATION 1,000 ML IV ONE (16:13)
--- NOTE | 2018-08-25 16:51 | P.PCN ---
Date of Procedure: 08/25/18 Description of Procedure: BRIEF HISTORY: 73-year-old female with a history of migraines maintained on multiple daily NSAIDs and 2 baby aspirin daily PPI presents with symptomatic anemia chest pain shortness of breath weakness 2 days melanotic bowel movements. Admission hemoglobin 5.4 received 2 units of blood present hemoglobin is 8.4. Previous hemoglobin in February was 14 range. No history of GI bleed. History of remote peptic ulcer disease more than 40 years ago. No history of gastric or bowel surgeries. Minimal abdominal discomfort. No emesis. Denies gross hematochezia. EGD colonoscopy 2-3 years ago according to family EGD reported hiatal hernia colonoscopy reported colonic diverticular disease no polyps removed.. PROCEDURE PERFORMED: Esophagogastroduodenoscopy with biopsy. PREOPERATIVE DIAGNOSIS: Melena, anemia of acute blood loss. ESTIMATED BLOOD LOSS: Minimal. IV sedation per anesthesia. PROCEDURE: After informed consent was obtained, the patient was brought into the endoscopy unit. IV sedation was administered by Anesthesia under continuous monitoring. Initially the Olympus GIF-190 video endoscope was inserted into the mouth. Esophagus intubated without any difficulty. It was gradually advanced into the stomach and duodenum and carefully examined. The bulb and the second part of the duodenum appeared normal. The scope at this time was withdrawn to the stomach, adequately insufflated with air, and upon careful examination, mucosa of the antrum, body, cardia and the fundus appeared normal except for some mild scattered erythema in the antrum and body with biopsies taken. The scope was then withdrawn into the esophagus. A small hiatal hernia was noted The GE junction was located at 36 cm from the incisors. The esophagus appeared normal with a nonobstructing Schatzki's ring in the distal esophagus. There were no erosions or ulcerations seen and the patient tolerated the procedure well. IMPRESSION: 1. No old blood, fresh blood or source of bleeding noted. 2. GASTRITIS antrum and body, biopsied. Nonobstructing widely patent distal Schatzki's ring in the esophagus. Small hiatal hernia.. RECOMMENDATIONS: The findings of this examination were discussed with the patient her and daughter. Continue to monitor hemoglobin and transfuse as needed. Will start clear liquid diet. Magnesium citrate tonight. Plan on video capsule endoscopy in the morning. Further recommendations pending findings of capsule and patient's clinical course.
[2018-08-25 17:05] LABS: Glucose,Whole Blood 108 mg/dL (75-99)
[2018-08-25] MEDS ORDERED: MAGNESIUM CITRATE 296 ML BOTTLE PO ONE (18:00)
[2018-08-25 20:00] LABS: Anisocytosis Slight; HCT 25.5 % (34.0-46.0); HGB 8.2 gm/dL (11.4-16.0); MCH 30.5 pg (25.0-35.0); MCHC 32.3 g/dL (31.0-37.0); MCV 94.3 fL (80.0-100.0); Mean Platelet Volume 8.2; Platelet Count 184 k/uL (150-450); Poikilocytosis Slight; RDW 16.5 % (11.5-15.5); WBC 3.8 k/uL (3.8-10.6)
[2018-08-25] MEDS ORDERED: GABAPENTIN 400 MG CAP PO STA (20:58)
[2018-08-25 21:12] LABS: Glucose,Whole Blood 119 mg/dL (75-99)
[2018-08-26 00:39] LABS: Anisocytosis Slight; HGB 7.7 gm/dL (11.4-16.0); MCH 30.4 pg (25.0-35.0); MCHC 32.3 g/dL (31.0-37.0); MCV 94.1 fL (80.0-100.0); Mean Platelet Volume 7.3; Platelet Count 174 k/uL (150-450); Poikilocytosis Slight; RBC 2.55 m/uL (3.80-5.40); RDW 16.5 % (11.5-15.5); WBC 3.7 k/uL (3.8-10.6)
[2018-08-26 06:28] LABS: Glucose,Whole Blood 121 mg/dL (75-99)
[2018-08-26] MEDS: INSULIN ASPART (NovoLOG) 100 UNIT/ML VIAL SQ SCH ×4 (06:29→21:38)
[2018-08-26] MEDS: LEVOTHYROXINE 100 MCG TAB PO SCH (06:53)
[2018-08-26 07:10] LABS: Anisocytosis Slight; HCT 26.7 % (34.0-46.0); HGB 8.7 gm/dL (11.4-16.0); Hypochromasia Slight; MCH 31.1 pg (25.0-35.0); MCHC 32.5 g/dL (31.0-37.0); MCV 95.6 fL (80.0-100.0); Macrocytosis Slight; Mean Platelet Volume 7.2; Platelet Count 223 k/uL (150-450); Poikilocytosis Slight; WBC 4.2 k/uL (3.8-10.6)
[2018-08-26 07:25] LABS: Calcium 9.1 mg/dL (8.4-10.2); Potassium 4.6 mmol/L (3.5-5.1)
[2018-08-26] MEDS ORDERED: SIMETHICONE 40 MG/0.6 ML DROPS 2,000 MG/30 ML BOTTLE PO ONE (07:55)
[2018-08-26] MEDS: PANTOPRAZOLE 40 MG/10 ML VIAL IVP SCH (09:04)
[2018-08-26 11:49] LABS: Glucose,Whole Blood 137 mg/dL (75-99)
--- NOTE | 2018-08-26 11:55 | P.PN ---
Subjective Progress Note Date: 08/26/18 Principal diagnosis: GI bleed Status post EGD yesterday no evidence of active bleeding or bleeding sources. Capsule study in progress. Feels well. Hemoglobin 8.7. CT ordered. Objective - Vital Signs Vital signs: Vital Signs Temp 98.1 F 08/26/18 11:28 Pulse 93 08/26/18 11:29 Resp 18 08/26/18 11:29 BP 114/65 08/26/18 11:28 Pulse Ox 98 08/26/18 11:28 Intake & Output 08/25/18 08/26/18 08/26/18 18:59 06:59 18:59 Intake Total 200 1300 Output Total 600 Balance -400 1300 Weight 63 kg Intake: IV 200 Oral 0 1300 Output: Urine 600 Other: Voiding Method Toilet Toilet Toilet # Voids 1 2 - Exam General appearance: The patient is alert, oriented, in no acute distress. HET: Head is normocephalic and atraumatic. Pupils are equal and reactive. Oropharynx is clear without lesions. Neck: Supple without lymphadenopathy. Trachea midline. Heart: S1 S2. Regular rate and rhythm. Lungs: No crackles or wheezes are heard. Abdomen: Soft, nontender, nondistended with bowel sounds. No peritoneal signs. No palpable organomegaly or masses. Extremities: Normal skin color and turgor. No cyanosis, rash, ulceration, clubbing, or edema. Radial and pedal pulses are 2/4 bilaterally. Neurological: No focal deficits. Strength and sensation are grossly intact. - Labs CBC & Chem 7: 08/26/18 06:50 08/26/18 06:50 Labs: Abnormal Lab Results - Last 24 Hours (Table) 08/25/18 08/25/18 08/25/18 Range/Units 11:39 17:03 19:50 WBC (3.8-10.6) k/uL RBC 2.70 L (3.80-5.40) m/uL Hgb 8.2 L (11.4-16.0) gm/dL Hct 25.5 L (34.0-46.0) % RDW 16.5 H (11.5-15.5) % BUN (7-17) mg/dL Glucose (74-99) mg/dL POC Glucose (mg/dL) 131 H 108 H (75-99) mg/dL 08/25/18 08/25/18 08/26/18 Range/Units 21:11 23:58 06:27 WBC 3.7 L (3.8-10.6) k/uL RBC 2.55 L (3.80-5.40) m/uL Hgb 7.7 L (11.4-16.0) gm/dL Hct 24.0 L (34.0-46.0) % RDW 16.5 H (11.5-15.5) % BUN (7-17) mg/dL Glucose (74-99) mg/dL POC Glucose (mg/dL) 119 H 121 H (75-99) mg/dL 08/26/18 08/26/18 08/26/18 Range/Units 06:50 06:50 11:47 WBC (3.8-10.6) k/uL RBC 2.80 L (3.80-5.40) m/uL Hgb 8.7 L (11.4-16.0) gm/dL Hct 26.7 L (34.0-46.0) % RDW 17.0 H (11.5-15.5) % BUN 22 H (7-17) mg/dL Glucose 133 H (74-99) mg/dL POC Glucose (mg/dL) 137 H (75-99) mg/dL Assessment and Plan (1) GI bleed Narrative/Plan: Acute blood loss anemia melena with history of underlying colonic diverticulosis hiatal hernia, heavy NSAID use occluding daily baby aspirin for treatment of migraines. Status post unremarkable EGD small bowel capsule today rule out small bowel source. Current Visit: Yes Status: Acute Code(s): K92.2 - GASTROINTESTINAL HEMORRHAGE, UNSPECIFIED SNOMED Code(s): 85408680 (2) Symptomatic anemia Current Visit: Yes Status: Acute Code(s): D64.9 - ANEMIA, UNSPECIFIED SNOMED Code(s): 145891252 Plan: 1. CBC monitoring. We'll continue to follow. GI prophylaxis. Avoid NSAIDs. CT ordered. 2. We'll review capsule once completed and communicate results. Assessment and plan a care discussed with Dr. Gilbert
--- NOTE | 2018-08-26 12:17 | CT ---
EXAMINATION TYPE: CT abdomen pelvis wo con DATE OF EXAM: 08/26/2018 HISTORY: Left flank and back pain. CT DLP: 367.4 mGycm. Automated Exposure Control for Dose Reduction was Utilized. TECHNIQUE: CT scan of the abdomen and pelvis is performed without oral or IV contrast. COMPARISON: NONE FINDINGS: Within the limitations of a non-contrast study, the following observations are made. LUNG BASES: Some dependent atelectasis in both bases is present coronary artery calcification is seen which is noted marked underlying coronary artery disease. LIVER/GB: Scattered throughout the liver there are multiple subcentimeter hypodense lesions that are too small to further characterize, few are between 1 to 2 cm in size. Benign etiology is favored. PANCREAS: No significant abnormality is seen. SPLEEN: There are scattered calcifications throughout the spleen presumed product of old granulomatou s disease. ADRENALS: Slight thickening to both adrenal glands may reflect benign hyperplasia. KIDNEYS: There is 1.5 cm simple appearing cyst anteriorly mid pole left kidney axial image 49. Centra l calcification right kidney coronal image 49 favors vascular etiology. No definitive renal calculi o r hydronephrosis is evident bilaterally. BOWEL: Stomach is poorly distended and thus suboptimally evaluated. There is no suspicious small or l arge bowel dilatation. There are some diverticula in the sigmoid colon without CT evidence for acute diverticulitis. There is streak artifact from metallic density structure in the right pelvis presumed and distal ileal loop axial image 107 measuring 15 x 9 mm. GENITAL ORGANS: Uterus is surgically absent or markedly atrophic. LYMPH NODES: No greater than 1cm abdominal or pelvic lymph nodes are appreciated. OSSEOUS STRUCTURES: There is mild to moderate disc space narrowing and vacuum disc phenomenon L3-L4 a nd L4-L5 levels with mild to moderate anterior spurring. Posterior disc herniations L2-L3 and L3-L4 l evels effacing anterior thecal sac. There is facet arthropathy lower lumbar levels. Spine is straight ened on sagittal images. There is slight scoliotic curvature on coronal images. OTHER: Few scattered left-sided pelvic phleboliths are seen. There is moderate calcified plaque of ao rta extending into branch vessels with some ectasia of the abdominal aorta, no greater than 3 cm aneu rysmal change. IMPRESSION: 1. No definitive renal stones or hydronephrosis is seen bilaterally. 2. There is 1.5 cm metallic oval lesion within ileal loops in the right pelvis, correlate for pill in gestion for small bowel capsule endoscopy otherwise ingested metallic foreign body needs to be strong ly considered. No suspicious bowel dilatation to suggest obstruction is noted. Few sigmoid colonic di verticula without CT evidence for acute diverticulitis.
--- NOTE | 2018-08-26 12:48 | P.PN ---
Subjective Progress Note Date: 08/26/18 Principal diagnosis: Follow-up for acute symptomatic anemia secondary to GI blood loss Patient seen and examined no reports of further bloody bowel movements (except one time small amount with bowel prep, had black tarry stool) , patient denies any chest pain or trouble breathing. today complaining of lower back pain, concerned regarding recent report of renal stone . Objective - Vital Signs Vital signs: Vital Signs Temp 98.1 F 08/26/18 11:28 Pulse 93 08/26/18 11:29 Resp 18 08/26/18 11:29 BP 114/65 08/26/18 11:28 Pulse Ox 98 08/26/18 11:28 Intake & Output 08/25/18 08/26/18 08/26/18 18:59 06:59 18:59 Intake Total 200 1300 Output Total 600 Balance -400 1300 Weight 63 kg Intake: IV 200 Oral 0 1300 Output: Urine 600 Other: Voiding Method Toilet Toilet Toilet # Voids 1 2 - Exam Constitutional: vital signs stable, Not in acute distress, pleasant, conversant Lungs: Clear to auscultation bilaterally, clear to percussion, normal respiratory effort no use of accessory muscles Cardiovascular: Regular rate and rhythm, no murmurs, no gallops, no rubs, no peripheral edema Gastrointestinal: Soft, left CVA tenderness to palpation , bowel sounds positive Extremities: No digital cyanosis or clubbing, peripheral pulses palpable and equal over bilateral radial arteries and dorsalis pedis artery, no calf muscle tenderness Psych: Alert, oriented to place, person and time, appropriate affect, intact judgment straight leg raise test was negative bilaterally - Labs CBC & Chem 7: 08/26/18 06:50 08/26/18 06:50 Labs: Abnormal Lab Results - Last 24 Hours (Table) 08/25/18 08/25/18 08/25/18 Range/Units 17:03 19:50 21:11 WBC (3.8-10.6) k/uL RBC 2.70 L (3.80-5.40) m/uL Hgb 8.2 L (11.4-16.0) gm/dL Hct 25.5 L (34.0-46.0) % RDW 16.5 H (11.5-15.5) % BUN (7-17) mg/dL Glucose (74-99) mg/dL POC Glucose (mg/dL) 108 H 119 H (75-99) mg/dL 08/25/18 08/26/18 08/26/18 Range/Units 23:58 06:27 06:50 WBC 3.7 L (3.8-10.6) k/uL RBC 2.55 L 2.80 L (3.80-5.40) m/uL Hgb 7.7 L 8.7 L (11.4-16.0) gm/dL Hct 24.0 L 26.7 L (34.0-46.0) % RDW 16.5 H 17.0 H (11.5-15.5) % BUN (7-17) mg/dL Glucose (74-99) mg/dL POC Glucose (mg/dL) 121 H (75-99) mg/dL 08/26/18 08/26/18 Range/Units 06:50 11:47 WBC (3.8-10.6) k/uL RBC (3.80-5.40) m/uL Hgb (11.4-16.0) gm/dL Hct (34.0-46.0) % RDW (11.5-15.5) % BUN 22 H (7-17) mg/dL Glucose 133 H (74-99) mg/dL POC Glucose (mg/dL) 137 H (75-99) mg/dL Assessment and Plan Assessment: 73-year-old female with history of and peptic ulcer admitted as an inpatient wi th anticipated length of stay more than 48 hours due to severe anemia secondary to acute GI blood loss. Seems like patient takes NSAIDs at home on empty stomach at times due to migraine headaches. Patient admitted for blood transfusion IV fluid hydration and GI evaluation for possible EGD. 08/25 no further episodes of bloody bowel movements. Patient's hemoglobin today is improved at 8.5 after 2 units blood transfusion yesterday, vital signs stable with slight tachycardia awaiting EGD today continue with PPI, nothing by mouth, supportive care 08/26 tolerated procedure for EGD yesterday well, gastritis, wide open schatzki ring, no acute findings that suggest GI bleed source, today plan for video capsule endoscopy, Hgb stable and up to 8.7. Plan: Acute symptomatic anemia secondary to GI bleeding 2/2 NSAIDs Supportive care EGD showed gastritis, wide open schatzki ring, hiatal hernia, no definite source that explains gi bleeding plans for video capsule endoscopy switch to PO PPI Status post 2 unit blood transfusion, hemoglobin stable up to 8.7 today hgb daily Fall precautions hold aspirin hold NSAIDs IVF hydration CLD Dysphgia and odynophagia at times GI evaluation OP evaluation by ENT and Pulmonary did not reveal any abnormalities Low back pain with possible kidney stone pain control with norco as needed CT abd /pelvis did not show any stones Chronic conditions hypothyroidsim DM dietry controlled continue with insulin sliding scale GERD migraine headaches DVT prophylaxis SCDs due to GI bleeding possible discharge in AM if stable PT/OT
[2018-08-26] MEDS: HYDROcodone/APAP 5-325MG 1 EACH TAB PO PRN ×2 (12:55→20:46)
[2018-08-26] MEDS: SODIUM CHLORIDE 0.9% 1,000 ML IV SCH (16:28)
[2018-08-26 16:42] LABS: Glucose,Whole Blood 112 mg/dL (75-99)
[2018-08-26] MEDS: PANTOPRAZOLE 40 MG TABLET PO SCH (17:34)
[2018-08-26 21:09] LABS: Glucose,Whole Blood 212 mg/dL (75-99)
[2018-08-27] MEDS: SODIUM CHLORIDE 0.9% 1,000 ML IV SCH (01:04)
[2018-08-27 06:28] LABS: Glucose,Whole Blood 119 mg/dL (75-99)
[2018-08-27] MEDS: INSULIN ASPART (NovoLOG) 100 UNIT/ML VIAL SQ SCH ×2 (06:32→12:52)
[2018-08-27] MEDS: PANTOPRAZOLE 40 MG TABLET PO SCH (06:35)
[2018-08-27] MEDS: LEVOTHYROXINE 50 MCG TAB PO SCH (06:35)
[2018-08-27 08:10] VITALS: TEMP 98.3
[2018-08-27 08:14] LABS: Anisocytosis Slight; HCT 23.5 % (34.0-46.0); HGB 7.6 gm/dL (11.4-16.0); Hypochromasia Slight; MCH 30.6 pg (25.0-35.0); MCHC 32.3 g/dL (31.0-37.0); MCV 94.8 fL (80.0-100.0); Macrocytosis Slight; Mean Platelet Volume 7.4; Platelet Count 184 k/uL (150-450); Poikilocytosis Slight; RBC 2.48 m/uL (3.80-5.40); RDW 16.7 % (11.5-15.5); WBC 2.6 k/uL (3.8-10.6)
[2018-08-27 08:23] LABS: Calcium 8.6 mg/dL (8.4-10.2); Potassium 4.3 mmol/L (3.5-5.1)
[2018-08-27] MEDS: HYDROcodone/APAP 5-325MG 1 EACH TAB PO PRN (08:39)
[2018-08-27 12:03] LABS: Glucose,Whole Blood 163 mg/dL (75-99)
[2018-08-27 13:13] VITALS: BP 104/59; PULSE 99; RESP 17
--- NOTE | 2018-08-27 13:23 | P.PN ---
Subjective Progress Note Date: 08/27/18 Principal diagnosis: GI bleed Status post EGD no evidence of active bleeding or bleeding sources. Video capsule negative for active bleeding or bleeding sources. Feels well. Hem oglobin 7.6. CT colonic diverticulosis. No obstruction. Patient's spouse states she had 2 bowel movements that were dark in color. Objective - Vital Signs Vital signs: Vital Signs Temp 98.3 F 08/27/18 12:00 Pulse 99 08/27/18 12:00 Resp 17 08/27/18 12:00 BP 104/59 08/27/18 12:00 Pulse Ox 92 L 08/27/18 12:00 Intake & Output 08/26/18 08/27/18 08/27/18 18:59 06:59 18:59 Intake Total 1005 1225 180 Output Total 650 Balance 355 1225 180 Weight 62.1 kg Intake: Intake, IV Titration 525 825 Amount Sodium Chloride 0.9% 1, 525 825 000 ml @ 75 mls/hr IV . [id number] [facility] Rx#:[id number] Oral 480 400 180 Output: Urine 650 Other: Voiding Method Toilet Toilet Toilet # Voids 1 1 # Bowel Movements 1 - Exam General appearance: The patient is alert, oriented, in no acute distress. HET: Head is normocephalic and atraumatic. Pupils are equal and reactive. Oropharynx is clear without lesions. Neck: Supple without lymphadenopathy. Trachea midline. Heart: S1 S2. Regular rate and rhythm. Lungs: No crackles or wheezes are heard. Abdomen: Soft, nontender, nondistended with bowel sounds. No peritoneal signs. No palpable organomegaly or masses. Extremities: Normal skin color and turgor. No cyanosis, rash, ulceration, clubbing, or edema. Radial and pedal pulses are 2/4 bilaterally. Neurological: No focal deficits. Strength and sensation are grossly intact. - Labs CBC & Chem 7: 08/27/18 07:28 08/27/18 07:28 Labs: Abnormal Lab Results - Last 24 Hours (Table) 08/26/18 08/26/18 08/27/18 Range/Units 16:40 21:08 06:26 WBC (3.8-10.6) k/uL RBC (3.80-5.40) m/uL Hgb (11.4-16.0) gm/dL Hct (34.0-46.0) % RDW (11.5-15.5) % Chloride (98-107) mmol/L Glucose (74-99) mg/dL POC Glucose (mg/dL) 112 H 212 H 119 H (75-99) mg/dL 08/27/18 08/27/18 08/27/18 Range/Units 07:28 07:28 12:01 WBC 2.6 L (3.8-10.6) k/uL RBC 2.48 L (3.80-5.40) m/uL Hgb 7.6 L (11.4-16.0) gm/dL Hct 23.5 L (34.0-46.0) % RDW 16.7 H (11.5-15.5) % Chloride 108 H (98-107) mmol/L Glucose 111 H (74-99) mg/dL POC Glucose (mg/dL) 163 H (75-99) mg/dL Assessment and Plan (1) GI bleed Narrative/Plan: Status post EGD no evidence of peptic ulcer disease or bleeding sources. Video capsule endoscopy negative for acute bleeding or bleeding sources. Suspect small bowel source exacerbated by chronic NSAID usage likely resolved prior to capsule investigation. Current Visit: Yes Status: Acute Code(s): K92.2 - GASTROINTESTINAL HEMORRHAGE, UNSPECIFIED SNOMED Code(s): 97427996 (2) Symptomatic anemia Current Visit: Yes Status: Acute Code(s): D64.9 - ANEMIA, UNSPECIFIED SNOMED Code(s): 993453328 Plan: 1. Patient was to proceed with cautious use of NSAIDs as higher doses may cause recurrent GI bleeding. CBC monitoring outpatient setting. Agreeable for discharge. Assessment and plan a care discussed with Dr. Gilbert
--- NOTE | 2018-08-27 14:44 | P.DS ---
Providers Date of admission: 08/24/18 12:00 Expected date of discharge: 08/27/18 Attending physician: Gwyn Krueger MD Consults: Dr. Gilbert from GI Primary care physician: Jl Cooper Hospital Course: Final diagnoses at discharge Acute symptomatic anemia secondary to acute GI blood loss secondary to NSAIDs use Dysphagia Secondary diagnoses Chronic low back pain Hypothyroidism Diabetes mellitus with dietary controlled GERD History of migraine headaches Hospital course 73-year-old female with history of and peptic ulcer admitted as an inpatient with anticipated length of stay more than 48 hours due to severe anemia secondary to acute GI blood loss. Seems like patient takes NSAIDs at home on empty stomach at times due to migraine headaches. Patient admitted for blood transfusion IV fluid hydration and GI evaluation for possible EGD. 08/25 no further episodes of bloody bowel movements. Patient's hemoglobin today is improved at 8.5 after 2 units blood transfusion yesterday, vital signs stable with slight tachycardia awaiting EGD today continue with PPI, nothing by mouth, supportive care 08/26 tolerated procedure for EGD yesterday well, gastritis, wide open schatzki ring, no acute findings that suggest GI bleed source, today plan for video capsule endoscopy, Hgb stable and up to 8.7. 08/27 computed tomography scan of the abdomen and pelvis was reviewed no evidence of renal stones. Hemoglobin ranging between 7.6 and 8.7 over the past 2 days Patient seen and examined on day of discharge she is tolerating exercise pretty well she took 2 loops around the hallways with no limitations due to shortness of breath or chest pain. She was walking independently while observed by nursing staff. Denies any chest pain or trouble breathing denies any ongoing GI bleeding chest small amount of what looks like residual tarry black stool yesterday. Constitutional: vital signs stable, Not in acute distress, pleasant, conversant Lungs: Clear to auscultation bilaterally, clear to percussion, normal respiratory effort no use of accessory muscles Cardiovascular: Regular rate and rhythm, no murmurs, no gallops, no rubs, no peripheral edema Gastrointestinal: Soft, soft and lax no tenderness to palpation, bowel sounds positive Extremities: No digital cyanosis or clubbing, peripheral pulses palpable and equal over bilateral radial arteries and dorsalis pedis artery, no calf muscle tenderness Psych: Alert, oriented to place, person and time, appropriate affect, intact judgment straight leg raise test was negative bilaterally Patient received a total of 2 units early on during this hospital course. Patient discharged in stable clinical condition Hemoglobin remained stable hovering around 7.6 - 8.6, no evidence of ongoing GI bleeding. GI cleared patient for discharge EGD, C scope, video capsule endoscopy did not show any active source of bleeding. Follow-up with Yisel WEINER share holder covering for Dr. Cooper in 3-5 days. Prescription for Protonix and [place] even to the patient's Outpatient follow-up with GI Patient should be cautious with future use of NSAIDs. Okay for patient to use low-dose aspirin On discharge, the patient has been prescribed [[place]] for the treatment of [chronic pain]. They have been provided a [4 days,] day supply and [facility] was checked on [08/27/18]. [I have counseled them on the risk of opiate medications including addiction and overdose. We also discussed that mixing opiate medications with benzodiazepines, alcohol, muscle relaxers, and other drugs that depress the central nervous system can lead to serious health risks including overdose, , and disability. I informed them that it is a felony to illegally deliver, sell, or share a controlled substance. I have instructed them that unused opiates can be disposed of at a drug takeback location, which includes the [facility] and the [facility]. The Opioid start talking form has been signed.] I have referred them [back to their primary care physician] for follow-up care. 40 minutes were spent discharging this patient, and more than 50% of the time was spent in counseling the patient and family and in coordinating care. Procedures: EGD, video capsule endoscopy, colonoscopy Patient Condition at Discharge: Stable Plan - Discharge Summary Discharge Rx Participant: No New Discharge Prescriptions: New HYDROcodone/APAP 5-325MG [[place] 5-325] 1 each PO Q8HR PRN #12 tab PRN Reason: Pain Pantoprazole [Protonix] 40 mg PO AC-BID #60 tablet. Continue Levothyroxine Sodium [Synthroid] 100 mcg PO MOWEFR Aspirin [Adult Low Dose Aspirin EC] 81 mg PO DAILY Cholecalciferol [Vitamin D3] 2,000 unit PO DAILY Levothyroxine Sodium 150 mcg PO SUTUTHSA Atorvastatin [Lipitor] 40 mg PO HS diphenhydrAMINE HCL [Benadryl] 25 mg PO DAILY Mirtazapine [Remeron] 15 mg PO HS Discontinued Omeprazole 20 mg PO DAILY Discharge Medication List Aspirin [Adult Low Dose Aspirin EC] 81 mg PO DAILY 11/28/15 [History] Levothyroxine Sodium [Synthroid] 100 mcg PO MOWEFR 11/28/15 [History] Cholecalciferol [Vitamin D3] 2,000 unit PO DAILY 02/06/16 [History] Atorvastatin [Lipitor] 40 mg PO HS 03/24/18 [History] Levothyroxine Sodium 150 mcg PO SUTUTHSA 03/24/18 [History] Mirtazapine [Remeron] 15 mg PO HS 08/24/18 [History] diphenhydrAMINE HCL [Benadryl] 25 mg PO DAILY 08/24/18 [History] HYDROcodone/APAP 5-325MG [[place] 5-325] 1 each PO Q8HR PRN #12 tab 08/27/18 [Rx] Pantoprazole [Protonix] 40 mg PO AC-BID #60 tablet. 08/27/18 [Rx] Follow up Appointment(s)/Referral(s): Prisca Villafana MD [STAFF PHYSICIAN] - 09/10/18 2:45 pm () Armando Frias MD [STAFF PHYSICIAN] - 09/02/18 11:00 am (Friday with Mell HOLDER (covering for Dr. Cooper)) Ambulatory/Diagnostic Orders: Complete Blood Count w/diff [LAB.AMB] Time Frame: 08/29/18, Location: None Selected Patient Instructions/Handouts: Diet for Stomach Ulcers and Gastritis (ED), Iron Rich Diet (DC), Safe Use of NSAIDs (ED), Upper Endoscopy (DC), Capsule Endoscop y (DC) Care Plan Goals (MU): try your best to avoid NSAIDs group of medications (includes but not limited to Advil, Aleve, MOtrin, ibuprofen, naprosyn, voltarin) Discharge Disposition: HOME SELF-CARE
== END 2018-08-27 15:31 | disposition home or self-care (01) | DRG 378 ==
LOC: EC 11:14 → 3SCARD 12:00
PROVIDERS: ADMIT Internal Medicine; ATTEND Internal Medicine
PROC: 30230N1 Transfusion of Nonautologous Red Blood Cells into Peripheral Vein, Open Approach (ICD-10-PCS; 2018-08-24)
PROC: 0DB78ZX Excision of Stomach, Pylorus, Via Natural or Artificial Opening Endoscopic, Diagnostic (ICD-10-PCS; principal; 2018-08-25 16:15)
DX: K29.71 Gastritis, unspecified, with bleeding (principal); D62 Acute posthemorrhagic anemia; K22.2 Esophageal obstruction; K76.89 Other specified diseases of liver; E11.9 Type 2 diabetes mellitus without complications; E03.9 Hypothyroidism, unspecified; G43.909 Migraine, unspecified, not intractable, without status migrainosus; G89.29 Other chronic pain; I49.3 Ventricular premature depolarization; K21.9 Gastro-esophageal reflux disease without esophagitis; K44.9 Diaphragmatic hernia without obstruction or gangrene; K57.30 Diverticulosis of large intestine without perforation or abscess without bleeding; T39.395A Adverse effect of other nonsteroidal anti-inflammatory drugs [NSAID], initial encounter; M19.90 Unspecified osteoarthritis, unspecified site; R91.1 Solitary pulmonary nodule; F32.9 Major depressive disorder, single episode, unspecified; M54.5 Low back pain; R05 Cough; N20.0 Calculus of kidney; Z79.82 Long term (current) use of aspirin; Z79.890 Hormone replacement therapy; Z79.899 Other long term (current) drug therapy; Z88.2 Allergy status to sulfonamides; Z86.010 Personal history of colon polyps; Z90.49 Acquired absence of other specified parts of digestive tract; Z90.710 Acquired absence of both cervix and uterus; Z87.891 Personal history of nicotine dependence; Z87.11 Personal history of peptic ulcer disease; Z98.42 Cataract extraction status, left eye; Z98.41 Cataract extraction status, right eye; Z96.1 Presence of intraocular lens; Z80.1 Family history of malignant neoplasm of trachea, bronchus and lung; Z82.49 Family history of ischemic heart disease and other diseases of the circulatory system; Z80.0 Family history of malignant neoplasm of digestive organs
CPT/HCPCS: 36415; 43239; 71046; 74176; 80048; 80053; 81003; 82272; 83036; 83605; 83735; 84484; 85025; 85027; 85379; 85610; 85730; 86850; 86900; 86901; 86920; 88305; 91110; 93005; 96360; 96361; 99291

== ENCOUNTER → 2018-08-29 | Outpatient (CLI) | payer MEDICARE ==
[2018-08-29 10:43] LABS: Anisocytosis Slight; HCT 26.1 % (34.0-46.0); HGB 8.6 gm/dL (11.4-16.0); Hypochromasia Moderate; MCH 32.1 pg (25.0-35.0); MCV 97.3 fL (80.0-100.0); Macrocytosis Slight; Mean Platelet Volume 7.3; Platelet Count 246 k/uL (150-450); Poikilocytosis Slight; RBC 2.68 m/uL (3.80-5.40); WBC 2.8 k/uL (3.8-10.6)
== END ==
LOC: LABWHC1 10:26
PROVIDERS: ATTEND Internal Medicine
DX: K92.2 Gastrointestinal hemorrhage, unspecified (principal); D64.9 Anemia, unspecified
CPT/HCPCS: 36415; 85027

== ENCOUNTER → 2018-09-02 | Outpatient (CLI) | payer MEDICARE ==
[2018-09-02 14:45] LABS: Basophils % (A) 1 %; Eosinophils # (A) 0.1 k/uL (0-0.7); Eosinophils % (A) 2 %; HCT 28.5 % (34.0-46.0); HGB 8.9 gm/dL (11.4-16.0); Hypochromasia Marked; Lymphocytes # (A) 1.1 k/uL (1.0-4.8); Lymphocytes % (A) 25 %; MCH 29.8 pg (25.0-35.0); MCHC 31.2 g/dL (31.0-37.0); MCV 95.3 fL (80.0-100.0); Mean Platelet Volume 7.1; Monocytes # (A) 0.3 k/uL (0-1.0); Monocytes % (A) 7 %; Neutrophils # (A) 2.7 k/uL (1.3-7.7); Neutrophils % (A) 62 %; Platelet Count 357 k/uL (150-450); Poikilocytosis Moderate; RDW 15.5 % (11.5-15.5); Reticulocyte % 3.8 % (0.5-2.0); WBC 4.4 k/uL (3.8-10.6)
[2018-09-02 19:41] LABS: Iron Saturation 5.98 (12.00-45.00)
[2018-09-02 19:52] LABS: Folate, Serum 16.6 ng/mL
== END | disposition home or self-care (01) ==
LOC: LABWHC1 14:10
PROVIDERS: ATTEND Internal Medicine Gastroenterology
DX: D64.9 Anemia, unspecified (principal)
CPT/HCPCS: 36415; 82607; 82728; 82746; 83540; 83550; 85025; 85045

== ENCOUNTER → 2019-05-08 | Outpatient (CLI) | payer MEDICARE ==
--- NOTE | 2019-05-08 14:06 | CT ---
EXAMINATION TYPE: CT sinus wo con DATE OF EXAM: 05/08/2019 COMPARISON: Prior sinus CT January 31, 2017 HISTORY: Headaches, sinus congestion and drainage CT DLP: 660.8 mGycm. Automated Exposure Control for Dose Reduction was Utilized. TECHNIQUE: CT scan of the sinuses is performed without contrast, axial images are obtained, coronal r eformatted images are also reviewed. FINDINGS: The paranasal sinuses including the frontal, ethmoid, sphenoid, and maxillary sinuses bila terally are well-aerated without abnormal opacification. The surgically treated ostiomeatal complexe s are patent bilaterally on current study coronal image 25. Surgery is new from prior study. Mild ant ral mucosal thickening present bilaterally. Nasal septum slightly deviated to left of midline anterio rly unchanged from prior. Visualized portion of mastoid air cells show no abnormal opacification. The globes are intact bilate rally. Vascular calcification distal internal carotid arteries bilaterally. Visualized brain parench yma shows age-related atrophy and chronic small vessel ischemic change. IMPRESSION: No acute sinusitis. Surgically treated ostiomeatal complexes are patent bilaterally.
== END | disposition home or self-care (01) ==
LOC: RADCTMAIN 13:30
PROVIDERS: ATTEND Otolaryngology Sleep Medicine
DX: J32.2 Chronic ethmoidal sinusitis (principal); Z98.890 Other specified postprocedural states
CPT/HCPCS: 70486

== ENCOUNTER → 2019-10-25 | Outpatient (CLI) | payer MEDICARE ==
[2019-10-25 12:15] LABS: Basophils % (A) 1 %; Eosinophils # (A) 0.3 k/uL (0-0.7); Eosinophils % (A) 7 %; HCT 41.5 % (34.0-46.0); HGB 13.5 gm/dL (11.4-16.0); Lymphocytes % (A) 26 %; MCH 32.6 pg (25.0-35.0); MCHC 32.6 g/dL (31.0-37.0); MCV 99.9 fL (80.0-100.0); Mean Platelet Volume 8.3; Monocytes # (A) 0.4 k/uL (0-1.0); Monocytes % (A) 10 %; Neutrophils # (A) 2.1 k/uL (1.3-7.7); Neutrophils % (A) 54 %; Platelet Count 146 k/uL (150-450); RBC 4.15 m/uL (3.80-5.40); RDW 12.9 % (11.5-15.5)
[2019-10-25 12:19] LABS: Total Eosinophil Count 23 #EOS/uL (150-300)
[2019-10-25 22:21] LABS: Cat Epith & Dander IgE <0.10 kU/L; Dermato. farinae IgE <0.10 kU/L
[2019-10-25 22:22] LABS: Cockroach IgE <0.10 kU/L; Dog Dander IgE <0.10 kU/L
[2019-10-25 22:23] LABS: Alternaria alternata IgE <0.10 kU/L; Aspergillus fumagatus IgE <0.10 kU/L; Cladosporian herbarum IgE <0.10 kU/L
[2019-10-25 22:24] LABS: Birch IgE <0.10 kU/L; Elm IgE <0.10 kU/L; Maple (Box Elder) IgE 0.37 kU/L; Oak IgE 0.55 kU/L; Ragweed,Common IgE 0.24 kU/L
== END | disposition home or self-care (01) ==
LOC: LABWHC1 10:55
PROVIDERS: ATTEND Internal Medicine
DX: R05 Cough (principal)
CPT/HCPCS: 36415; 82785; 85008; 85025; 86003

== ENCOUNTER → 2020-02-15 | Outpatient (CLI) | payer MEDICARE ==
--- NOTE | 2020-02-15 12:59 | CT ---
EXAMINATION TYPE: CT soft tissue neck w con DATE OF EXAM: 02/15/2020 COMPARISON: None HISTORY: bilateral neck mass CT DLP: 479 mGycm CONTRAST: Patient injected with 100 mL of Isovue 300. TECHNIQUE: Axial images at 3 mm thick sections. Reconstructed images in the coronal plane and sagitt al plane are reviewed. FINDINGS: Limited CT sections are obtained the lung apices. The lung apices appear clear. CT neck: The torus tubarius and fossa of Rosenmuller are normal. Camp Dishwasher spaces are normal. Para nasal sinuses and mastoid air cells are clear. Parotid glands appear somewhat prominent and slightly greater on the right compared to the left. Hugo elate with patient's mass location. Submandibular glands appear prominent bilaterally. Submandibular and parotid gland density appears homogenous. Parapharyngeal spaces are normal. No suspicious adenop athy is evident. The hypopharynx appears within normal limits. Vocal cord level appear symmetrical. Thyroid is not identified. Osseous structures are normal. IMPRESSIONS: 1. There is some mild fullness of the parotid gland, right more so than left and within the bilateral submandibular glands. Underlying abnormality however is not identified. Correlate with location of t he patient's bilateral neck mass.
== END | disposition home or self-care (01) ==
LOC: RADCTMAIN 10:35
PROVIDERS: ATTEND Otolaryngology
DX: R93.89 Abnormal findings on diagnostic imaging of other specified body structures (principal); Z88.2 Allergy status to sulfonamides; Z88.0 Allergy status to penicillin
CPT/HCPCS: 82565; 84520; 70491; 36415; Q9967

== ENCOUNTER → 2020-10-05 | Outpatient (CLI) | payer MEDICARE ==
[~2020-10-05] MED LIST: DOBUTamine DRIP for NUC MED 500 MG in DEXTROSE/WATER 1 250ML.BAG IV PRN; REGADENOSON 0.4 MG/5 ML SYRINGE IV PRN
--- NOTE | 2020-10-05 13:00 | ECHOF ---
Referral Reason:R07.89 MEASUREMENTS -------- HEIGHT: 154.9 cm WEIGHT: 58.1 kg BP: IVSd: 0.7 cm (0.6 - 1.1) LVIDd: 5.3 cm (3.9 - 5.3) LVPWd: 1.1 cm (0.6 - 1.1) EDV(Teich): 137 ml IVSs: 0.8 cm LVIDs: 5.3 cm LVPWs: 0.9 cm %IVS Thck: 9 % ESV(Teich): 136 ml EF(Teich): 0 % %FS: 0 % SV(Teich): 1 ml RVIDd: 1.7 cm (< 3.3) IVC: 13.74 mm LVLd A4C: 6.9 cm LVEDV MOD A4C: 129 ml LVLs A4C: 6.8 cm LVESV MOD A4C: 96 ml LVEF MOD A4C: 25 % SV MOD A4C: 33 ml LALs A4C: 5.4 cm LAAs A4C: 25.2 cm LAESV A-L A4C: 99 ml LAESV MOD A4C: 92 ml LALs A2C: 5.1 cm LAAs A2C: 19.1 cm LAESV A-L A2C: 60 ml LAESV MOD A2C: 58 ml LAESV(A-L): 79 ml LAESV Index (A-L): 50.77 ml/m Ao Diam: 2.2 cm (2.0 - 3.7) LA Diam: 3.4 cm (2.7 - 3.8) AV Cusp: 1.5 cm (1.5 - 2.6) EPSS: 1.7 cm MV E Evin: 1.22 m/s MV DecT: 264 ms MV Dec Amador: 4.6 m/s MV A Evin: 0.61 m/s MV E/A Ratio: 2.00 MV PHT: 77 ms MV PHT: 74 ms MVA By PHT: 3.0 cm MR Vmax: 2.97 m/s MR maxP.38 mmHg AV Vmax: 1.31 m/s AV maxP.04 mmHg AV Vmax: 1.33 m/s AV Vmean: 1.06 m/s AV maxP.11 mmHg AV meanP.86 mmHg AV Env.Ti: 295 ms AV VTI: 31.4 cm AR Vmax: 3.32 m/s AR maxP.96 mmHg AR PHT: 531 ms AR Dec Time: 1830 ms AR Dec Amador: 1.8 m/s TR Vmax: 3.09 m/s TR maxP.24 mmHg RAP: 5.00 mmHg RVSP: 43.24 mmHg MV EF SLOPE: 43.88 mm/s (70 - 150) MV EXCURSION: 10.93 mm (> 18.000) FINDINGS -------- This was a technically good study. The left ventricle is mildly dilated. Left ventricular wall thickness is normal. There is severe global hypokinesis of LV . Overall left ventricular systolic function is severely impaired with, an EF between 20 - 25 %. Increased LAP Grade 3 Diastolic Dysfunction. The right ventricle is normal in size. LA is severely dilated >40 ml/m2 The right atrial size is normal. Patent foramen ovale present with right to left shunt. Aneurysmal Interatrial septum. Aortic valve is trileaflet and is mildly thickened. There is mild aortic valve sclerosis. There i s mild aortic regurgitation. Peak/mean gradient across the Aortic Valve is 7.11mmHg / 4.86mmHg. The mitral valve is normal. The mitral valve leaflets are mildly thickened. Mild mitral annular c alcification present. Njznrzen-pm-nnezum mitral regurgitation is present. The tricuspid valve appears structurally normal. Mild tricuspid regurgitation present. There is m ild pulmonary hypertension. The right ventricular systolic pressure, as measured by Doppler, is 43. 24mmHg. There is no pulmonic regurgitation present. The aortic root size is normal. Normal inferior vena cava with normal inspiratory collapse consistent with estimated right atrial pre ssure of 5 mmHg. There is no pericardial effusion. CONCLUSIONS -------- 1. The left ventricle is mildly dilated. 2. Left ventricular wall thickness is normal. 3. There is severe global hypokinesis of LV . 4. Overall left ventricular systolic function is severely impaired with, an EF between 20 - 25 %. 5. Increased LAP Grade 3 Diastolic Dysfunction. 6. LA is severely dilated >40 ml/m2 7. Patent foramen ovale present with right to left shunt. 8. Aneurysmal Interatrial septum. 9. Aortic valve is trileaflet and is mildly thickened. 10. There is mild aortic valve sclerosis. 11. There is mild aortic regurgitation. 12. Peak/mean gradient across the Aortic Valve is 7.11mmHg / 4.86mmHg. 13. The mitral valve leaflets are mildly thickened. 14. Mild mitral annular calcification present. 15. Vllawcgl-pf-jystuu mitral regurgitation is present. 16. Mild tricuspid regurgitation present. 17. There is mild pulmonary hypertension. 18. The right ventricular systolic pressure, as measured by Doppler, is 43.24mmHg. 19. There is no pericardial effusion. PRICING CLERK: Lexy Lisa RDCS
--- NOTE | 2020-10-05 13:28 | NM ---
EXAMINATION TYPE: NM stress lexiscan cardiolite DATE OF EXAM: 10/05/2020 COMPARISON: NONE HISTORY: chest pain TECHNIQUE: After the intravenous administration of 9 mCi Tc 99m Sestamibi - Cardiolite resting SPECT images acquired 55 minutes post injection. The patient received 0.4mg Lexiscan, 24.8 mCi Tc 99m Sestamibi - Stress images obtained [address] injection FINDINGS: Review of stress and rest SPECT images perfusion abnormality, mild decreased uptake along the anteros eptal left ventricle on stress and rest imaging could be due to breast attenuation, difficult to excl ude prior infarct. There is some decreased uptake on stress as compared to rest imaging along anterio r septal left ventricle towards the base of the heart seen best on the short axis views Gated analysi s shows decreased global wall motion with an estimated left ventricular ejection fraction of 29 %. IMPRESSION: There may be some joanna-infarct pharmacologically-induced left ventricular myocardial ischemia. Diffic ult to exclude prior infarct. Ejection fraction 29%, global hypokinesis. Lilly notified via [employer].
--- NOTE | 2020-10-09 17:36 | P.STRESS ---
- Stress Test Note Stress Test Results/Findings: Exam Performed: NM stress lexiscan cardiolite Exam Date: 10/05/20 Reason for Exam: Chest Pain Height: 5 ft 1 in Weight: 58.06 kg Protocol: Lexiscan Stage: na Duration of Exercise: na Resting Heart Rate: 76 Resting Blood Pressure: 147/88 Maximum Achieved Heart Rate: 100 Maximum Achieved Blood Pressure: 147/88 85% PMHR: 122 100% PMHR: 143 METS: na Technologist Comment: Stress Test Results/Findings: Baseline heart rate 76 beats a minute, Baseline blood pressure 147/88 mmHg Baseline 12 EKG shows sinus rhythm normal [place] narrow QRS normal ST segments Biatrial enlargement, poor R-wave progression Patient received Lexiscan infusion per protocol No change in heart rate or blood pressure No EKG abdomen it is noted other than occasional PVC New proportionally reported separately and a dictation
--- NOTE | 2020-10-10 10:53 | ECHOS ---
Stress Test Results/Findings: Exam Performed: NM stress lexiscan cardiolite Exam Date: 10/05/20 Reason for Exam: Chest Pain Height: 5 ft 1 in Weight: 58.06 kg Protocol: Lexiscan Stage: na Duration of Exercise: na Resting Heart Rate: 76 Resting Blood Pressure: 147/88 Maximum Achieved Heart Rate: 100 Maximum Achieved Blood Pressure: 147/88 85% PMHR: 122 100% PMHR: 143 METS: na Technologist Comment: Stress Test Results/Findings: Baseline heart rate 76 beats a minute, Baseline blood pressure 147/88 mmHg Baseline 12 EKG shows sinus rhythm normal [place] narrow QRS normal ST segments Biatrial enlargement, poor R-wave progression Patient received Lexiscan infusion per protocol No change in heart rate or blood pressure No EKG abdomen it is noted other than occasional PVC New proportionally reported separately and a dictation MTDD
== END | disposition home or self-care (01) ==
LOC: RADNMMAIN 09:07
PROVIDERS: ATTEND Internal Medicine
DX: R07.89 Other chest pain (principal)
CPT/HCPCS: 93017; 93306; 78452; A9500; J2785

== ENCOUNTER → 2020-10-12 | Outpatient (CLI) | payer MEDICARE ==
[2020-10-12 16:46] LABS: HCT 39.6 % (34.0-46.0); HGB 13.5 gm/dL (11.4-16.0); MCH 34.4 pg (25.0-35.0); Platelet Count 180 k/uL (150-450); RBC 3.92 m/uL (3.80-5.40); RDW 12.1 % (11.5-15.5); WBC 6.6 k/uL (3.8-10.6)
[2020-10-12 17:05] LABS: Potassium 4.9 mmol/L (3.5-5.1)
== END | disposition home or self-care (01) ==
LOC: LABPAT 16:22
PROVIDERS: ATTEND Internal Medicine Interventional Cardiology
DX: Z01.812 Encounter for preprocedural laboratory examination (principal); R94.39 Abnormal result of other cardiovascular function study
CPT/HCPCS: 80051; 82565; 84520; 85027

== ENCOUNTER 2020-10-17 06:34 | Day surgery (SDC) | payer MEDICARE ==
[2020-10-13 14:07] VITALS: BMI 24.3
[2020-10-17] MEDS ORDERED: HEPARIN SODIUM,PORCINE 10,000 UNIT in SODIUM CHLORIDE 0.9% 1,000 ML IRRIGATION PRN (06:35)
[2020-10-17] MEDS ORDERED: ALPRAZolam 0.25 MG TAB PO PRN (06:35)
[2020-10-17] MEDS ORDERED: SODIUM CHLORIDE 0.9% 1,000 ML in EMPTY BAG 1 BAG IV ONE (06:35)
[2020-10-17] MEDS ORDERED: HEPARIN SODIUM,PORCINE 2,500 UNIT in SODIUM CHLORIDE 0.9% 250 ML IRRIGATION PRN (06:35)
[2020-10-17] MEDS ORDERED: NITROGLYCERIN SL TABS 0.4 MG TAB SUBLINGUAL PRN (06:35)
[2020-10-17] MEDS ORDERED: ATORVASTATIN 80 MG TAB PO STA (06:35)
[2020-10-17] MEDS ORDERED: ALPRAZolam 0.5 MG TAB PO PRN (06:35)
[2020-10-17] MEDS ORDERED: ASPIRIN 325 MG TAB PO STA (06:35)
[2020-10-17 07:00] VITALS: RESP 16; TEMP 98.3
[2020-10-17 07:00] LABS: Glucose,Whole Blood 138 mg/dL (75-99)
[2020-10-17] MEDS ORDERED: MIDAZOLAM 2 MG/2 ML VIAL IV ONE (07:48)
[2020-10-17] MEDS ORDERED: LIDOCAINE 1% INJ 10MG/ML (20 ML MDV) SQ ONE (07:49)
[2020-10-17] MEDS ORDERED: VERAPAMIL SYRINGE (5 MG/10 ML) INTRAARTER ONE (07:49)
[2020-10-17] MEDS ORDERED: HEPARIN SODIUM 1,000 UN/ML (10ML VL) IV ONE (07:52)
[2020-10-17] MEDS ORDERED: IOPAMIDOL-370 125ML BTL INJ ONE (07:59)
[2020-10-17] MEDS ORDERED: SODIUM CHLORIDE 0.9% 1,000 ML IV SCH (08:00)
--- NOTE | 2020-10-17 08:46 | CC ---
CARDIAC CATHETERIZATION REPORT DATE OF SERVICE: 10/17/2020 PROCEDURE: Left heart catheterization and coronary angiography. PERFORMED BY: Dr. Lex Rasheed. CLINICAL INFORMATION: Mrs. Kelly Bower is a 75-year-old lady with history of type 2 diabetes, non-insulin- requiring, hypertension, hypothyroidism and hyperlipidemia, developed progressive dementia, but recently was found to have chest pain and shortness of breath and stress test revealed significant decrease in LV function with wall motion abnormalities suggestive of ischemic versus nonischemic cardiomyopathy. She was advised cardiac cath after due discussion and adjusting her medications. Risks, benefits, options and rationale were explained to the patient and her family members. PROCEDURE NOTE: Under local anesthesia and strict aseptic precautions, a 6-Turkish introducer was placed in the right radial artery. Using a JL3.5 and JR4 catheters I performed coronary angiography and the same right catheter was used to check LV pressures. LV gram was not performed. The sheath was taken out and TR band applied as per protocol. Saturation of the fingers of the right hand was 94%. Patient tolerated the procedure well without complication. CARDIAC CATHETERIZATION FINDINGS: Left ventricular end-diastolic pressure was about 15 mmHg without any gradient across the aortic valve. CORONARY ANGIOGRAPHY FINDINGS: RIGHT CORONARY ARTERY: This is a large dominant vessel, has no significant disease. Bifurcates distally into a PDA and PLV, both of which supply a sizable amount of myocardium. Distal branches of the RCA are small in caliber. RCA is generally tortuous. There is mild calcification, but no significant obstructive disease is noted. PDA is larger than the PLV. LEFT MAIN CORONARY ARTERY: Short, patent disease-free vessel that immediately bifurcates into LAD and circumflex. LEFT ANTERIOR DESCENDING CORONARY ARTERY: Good caliber vessel extends along the anterior wall, gives off a diagonal branch in the midportion of a moderate-sized. This diagonal branch has about a 60-70 percent stenosis as it comes off from the LAD. Mid LAD has about a 35% narrowing, otherwise no other significant disease and the LAD runs all the way to the apex supplying a sizable amount of myocardium that curves over the apex to supply the inferoapical portion of left ventricle. The LAD system therefore is free of significant disease. There is a 35% mid lesion, 60-70 percent diagonal lesion. Diagonal is fair caliber. I do not believe this lesion is significant. LEFT POSTERIOR CIRCUMFLEX CORONARY ARTERY: Technically a nondominant vessel of good caliber and distribution, gives off a good-sized obtuse marginal that runs laterally and then the vessel continues distally, has minor irregularities. Obtuse marginal and distal circumflex have minor irregularities. No significant disease. Left ventriculogram was not performed. FINAL IMPRESSION: This patient has slightly elevated filling pressures. No gradient. A right-dominant system. No significant obstructive CAD. There is a 60-70 percent diagonal lesion. She probably has a nonischemic cardiomyopathy. She will be discharged later on today and I will see her in the office within a week or 10 days. Findings were discussed with the patient and her family members. Same medical regimen will be continued for now. I will make necessary adjustments later on. ANESTHESIA: Moderate conscious sedation time was 12 minutes. Patient was administered Versed. Oxygen saturation and EKG were monitored closely. SHANTA / JS: [id number] /
--- NOTE | 2020-10-17 10:01 | ECHOF ---
Referral Reason:LV function/EF MEASUREMENTS -------- HEIGHT: 154.9 cm WEIGHT: 55.3 kg BP: 126/65 IVSd: 1.1 cm (0.6 - 1.1) LVIDd: 4.9 cm (3.9 - 5.3) LVPWd: 1.4 cm (0.6 - 1.1) IVSs: 1.3 cm LVIDs: 4.3 cm LVPWs: 1.5 cm FINDINGS -------- Sinus rhythm. Limited Study Patient is post cardiac catheterization and cannot be in left lateral position. The left ventricle is mildly dilated. Left ventricular wall thickness is normal. There is severe global hypokinesis of LV . Overall left ventricular systolic function is severely impaired with, an EF between 20 - 25 %. There is no pericardial effusion. CONCLUSIONS -------- 1. The left ventricle is mildly dilated. 2. Left ventricular wall thickness is normal. 3. There is severe global hypokinesis of LV . 4. Overall left ventricular systolic function is severely impaired with, an EF between 20 - 25 %. 5. There is no pericardial effusion. FINANCE ASSISTANT: Ida Royal, [facility]
[2020-10-17 11:14] VITALS: BP 107/55; PULSE 75
== END 2020-10-17 13:38 | disposition home or self-care (01) ==
LOC: CATHCVL 06:34
PROVIDERS: ATTEND Internal Medicine Interventional Cardiology
DX: R94.39 Abnormal result of other cardiovascular function study (principal); E03.9 Hypothyroidism, unspecified; E11.9 Type 2 diabetes mellitus without complications; E78.5 Hyperlipidemia, unspecified; F03.90 Unspecified dementia, unspecified severity, without behavioral disturbance, psychotic disturbance, mood disturbance, and anxiety; I10 Essential (primary) hypertension; Z20.822 Contact with and (suspected) exposure to COVID-19
CPT/HCPCS: 93308; 93458; 87635; C1894; J2250; J2001; J1644; Q9967

== ENCOUNTER → 2021-03-21 | Outpatient (CLI) | payer MEDICARE ==
[2021-03-21 15:55] LABS: African American GFR (CKD) 64.4 (60.0-200.0); Anion Gap 11.1 mmol/L (4.00-12.00); BUN/Creat Ratio 24.06 Ratio (12.00-20.00); Blood Urea Nitrogen 23.6 mg/dL (9.0-27.0); Calcium 9.7 mg/dL (8.7-10.3); Carbon Dioxide 24.3 mmol/L (21.6-31.8); Magnesium 1.7 mg/dL (1.5-2.4); Non-African American GFR(CKD) 55.6 (60.0-200.0); Potassium 4.9 mmol/L (3.5-5.5)
== END | disposition home or self-care (01) ==
LOC: LABWHC1 09:33
PROVIDERS: ATTEND Internal Medicine Interventional Cardiology
DX: I50.9 Heart failure, unspecified (principal)
CPT/HCPCS: 36415; 80048; 83735

== ENCOUNTER → 2021-10-22 | Outpatient (CLI) | payer MEDICARE ==
--- NOTE | 2021-10-22 12:40 | XR ---
EXAMINATION TYPE: XR chest 2V DATE OF EXAM: 10/22/2021 HISTORY: Shortness of breath. COMPARISON: 08/24/2018 TECHNIQUE: Single view of the chest is submitted. FINDINGS: Demonstrated are scattered senescent parenchymal change. There is no evidence for focal infiltrate. The heart is stable. Hilar and mediastinal structures are within normal limits. Degenerative changes are seen of the dorsal spine. IMPRESSION: 1. Chronic changes without evidence for acute pulmonary disease.
--- NOTE | 2021-10-22 14:34 | CT ---
EXAMINATION TYPE: CT sinus wo con DATE OF EXAM: 10/22/2021 COMPARISON: CT dated 05/08/2019 HISTORY: Chronic sinusitis CT DLP: 636.8 mGycm. Automated Exposure Control for Dose Reduction was Utilized. TECHNIQUE: CT scan of the sinuses is performed without contrast, axial images are obtained, coronal r eformatted images are also reviewed. FINDINGS: Previous endoscopic sinus surgery with bilateral maxillary antrostomy, partial turbinectomy, partial ethmoidectomy and bilateral uncinectomies. Pneumatization of the left vertical lamella. Minimal mucos al thickening of the nasal fossa bilaterally. Thick sclerotic felix of the maxillary sinuses likely representing sequela of chronic sinusitis. No s ignificant mucosal thickening of the maxillary sinuses or at the antrostomy beds. Clear frontal sinus , remainder of the ethmoid air cells and the sphenoid sinus. Slightly deviated bony nasal septum convex to the left side. Clear sphenoethmoidal recesses and visua lized mastoid air cells. Unremarkable orbits. Suspected chronic microvascular ischemic changes seen i n the visualized portion of the brain. Arterial atherosclerotic calcifications. IMPRESSION: No significant mucosal thickening of the paranasal sinuses. Postsurgical changes and other findings a s described above.
== END | disposition home or self-care (01) ==
LOC: RADCTMAIN 11:49
PROVIDERS: ATTEND Otolaryngology
DX: J32.9 Chronic sinusitis, unspecified (principal)
CPT/HCPCS: 70486; 71046

== ENCOUNTER → 2021-11-22 | Outpatient (CLI) | payer MEDICARE ==
--- NOTE | 2021-11-22 13:24 | BD ---
EXAMINATION TYPE: Axial Bone Density DATE OF EXAM: 11/22/2021 COMPARISON: NONE CLINICAL HISTORY: 76 years year old Female. ICD-10 CODE: M89.9 OTH DISRD OF BONE DENSITY AND STRUCTU RE Height: 61.5 Weight: 114 FRAX RISK QUESTIONS: Alcohol (3 or more units per day): NO Family History (Parent hip fracture): NO Glucocorticoids (More than 3mos): NO History of Fracture in Adulthood: NO Secondary Osteoporosis: 1. Type 1 Diabetes: NO 2. Hyperthyroidism: NO 3. Menopause before 45: YES 4. Malnutrition: NO 5. Chronic liver disease: NO Rheumatoid Arthritis: NO Current Tobacco Use: NO RISK FACTORS HISTORY OF: Hip Fracture (Right/Left): NO Spine Fracture: NO History of Wrist Fracture: NO Surgery to Spine/Hip(right/left)/ Wrist (right/left): NO Family History of Osteoporosis: NO Active: NO Diet low in dairy products/other sources of calcium: YES Postmenopausal woman: YES Take estrogen and/or progesterone medications: NO Lost more than 2 inches in height since high school: NO Frequent falls: NO Poor Health: NO Hyperparathyroidism: NO Adrenal Insufficiency: NO MEDICATIONS: Prednisone or other steroids: NO Thyroid Medications: LEVOTHYROXINE How Long: PAST 15 YEARS Osteoporosis Medications: NO Additional Medications: METFORMIN, LEVOTHYROXINE, ATORVASTATIN, LOSARTAN, REFLUX MEDS, VIT D, EXAM MEASUREMENTS: Bone mineral densitometry was performed using the [employer] System. Bone mineral density as measured about the Lumbar spine is: ----- L1-L4(G/cm2): 1.567 T Score Values are as follows: ----- L1: 0.0 ----- L2: 2.3 ----- L3: 4.2 ----- L4: 6.8 ----- L1-L4: 3.2 BASELINE STUDY Bone mineral density about the R hip (g/cm2): 0.949 Bone mineral density about the L hip (g/cm2): 0.928 T Score values are as follows: -----R Neck: -0.6 -----L Neck: -0.8 -----R Total: -0.6 -----L Total: -1.0 BASELINE STUDY FRAX%s: The graph provided illustrates a 9.2% chance for a major osteoporotic fx and a 1.6% chance fo r the hips probability for fx in 10 years time. IMPRESSION: Normal (Values between +1 and -1 indicate normal bone mass). Consider repeating this study in 5 year s or sooner if there is some new clinical indication. NOTE: T-SCORE=SD OF THE YOUNG ADULT MEAN.
== END | disposition home or self-care (01) ==
LOC: RADBDWWP 11:23
PROVIDERS: ATTEND Internal Medicine
DX: M89.9 Disorder of bone, unspecified (principal)
CPT/HCPCS: 77080

== ENCOUNTER 2021-12-14 10:55 | Day surgery (SDC) | payer MEDICARE ==
[~2021-12-14 10:55] MED LIST changes: +ALBUTEROL NEB (CONC) 2.5 MG/0.5 ML INHALATION ONE; +ATROPINE SULFATE 0.4 MG/ML 1 ML VIAL IM ONE; -DOBUTamine DRIP for NUC MED 500 MG in DEXTROSE/WATER 1 250ML.BAG IV PRN; +LACTATED RINGERS 1,000 ML IV SCH; +LIDOCAINE 2% (PF) 20 MG/ML 5 ML VIAL INHALATION ONE; +LIDOCAINE VISCOUS 300 MG/15 ML CUP MUCOUS MEM ONE; -REGADENOSON 0.4 MG/5 ML SYRINGE IV PRN
[2021-12-14 11:50] LABS: Glucose,Whole Blood 102 mg/dL (70-110)
[2021-12-14 11:51] VITALS: RESP 16; TEMP 97
[2021-12-14] MEDS ORDERED: ATROPINE SULFATE 0.4 MG/ML 1 ML VIAL IM ONE ×2 (11:53)
[2021-12-14] MEDS ORDERED: LIDOCAINE 2% INJ 20 MG/ML (2 ML VIAL) ONE (12:00)
[2021-12-14] MEDS ORDERED: PROPOFOL 10 MG/ML 20 ML VIAL IV ONE (12:00)
[2021-12-14] MEDS ORDERED: LIDOCAINE 2% (PF) 20 MG/ML 2 ML VIAL INHALATION ONE (12:15)
[2021-12-14 13:17] VITALS: BP 143/87; PULSE 72
--- NOTE | 2021-12-14 20:52 | PCN ---
PROCEDURE NOTE PROCEDURES PERFORMED: Bronchoscopy, airway examination, therapeutic lavage, bronchoalveolar lavage, right middle lobe. PREOPERATIVE DIAGNOSES: 1. Bronchiectasis. 2. Chronic cough. 3. Chronic infection. 4. Tracheobronchomalacia. POSTOPERATIVE DIAGNOSES: 1. Bronchiectasis. 2. Chronic cough. 3. Chronic infection. 4. Tracheobronchomalacia. ANESTHESIA PROVIDED: General anesthesia. DESCRIPTION OF PROCEDURE: The procedure took place in room #1. There was informed consent and universal timeout. After the patient was adequately sedated and being fully monitored, the bronchoscope was inserted through the right nostril. It passed through the right nasopharynx into the oropharynx. The hypopharynx was identified and topicalized. The hypopharyngeal structures including anterior commissure; true cords; false cords; arytenoids; piriform sinuses, right and left; vallecula and epiglottis, all appeared normal. After topicalization, the bronchoscope was pushed through the glottic opening into the trachea. There was significant tracheomalacia. The blood vessels of the trachea seemed a bit engorged. The tracheal rickey was sharp. The right and left mainstem were topicalized. The right upper lobe and its 3 segments, right middle lobe and its 2 segments, right lower lobe and its 5 segments, left upper lobe proper and its 2 segments, lingula and its 2 segments, and left lower lobe and its 4 segments all had similar findings of diffuse erythema and hyperemia of the airways. It was quite significant and severe, I would say. Scant secretions were noted. There was significant mucosal friability and vascular engorgement. No dominant mass or tumor. The bronchoscope was then wedged into the right middle lobe. BAL took place. 30 mL of fluid was recovered. The fluid will be sent for analysis including cytology and microbiology. The bronchoscope was withdrawn. The patient tolerated the procedure well without any complication. MMODL / IJN: [id number] /
== END 2021-12-14 13:22 | disposition home or self-care (01) ==
LOC: ORWHC2ENDO 10:55
PROVIDERS: ATTEND Internal Medicine Critical Care Medicine
DX: J47.9 Bronchiectasis, uncomplicated (principal); J98.09 Other diseases of bronchus, not elsewhere classified; E11.69 Type 2 diabetes mellitus with other specified complication; E78.5 Hyperlipidemia, unspecified; I10 Essential (primary) hypertension; Z87.891 Personal history of nicotine dependence; E07.9 Disorder of thyroid, unspecified; K21.9 Gastro-esophageal reflux disease without esophagitis; Z79.899 Other long term (current) drug therapy; Z79.51 Long term (current) use of inhaled steroids; Z79.890 Hormone replacement therapy; Z79.84 Long term (current) use of oral hypoglycemic drugs; Z80.1 Family history of malignant neoplasm of trachea, bronchus and lung; Z80.0 Family history of malignant neoplasm of digestive organs; Z82.49 Family history of ischemic heart disease and other diseases of the circulatory system; Z88.2 Allergy status to sulfonamides; Z79.82 Long term (current) use of aspirin; Z88.3 Allergy status to other anti-infective agents
CPT/HCPCS: 88108; 88305; 87252; 87070; 87205; 87116; 87102; 87206; 31624; J0461; J2704; J2001 ×2; 87496; 87498; 87502; 87529; 87634; 87798; 89050

== ENCOUNTER 2022-08-29 14:08 | Emergency (ER) | payer MEDICARE ==
[2022-08-29] MEDS ORDERED: ACETAMINOPHEN IV (For NPO) 1,000 MG in EMPTY BAG 1 BAG IVPB STA (14:50)
[2022-08-29] MEDS ORDERED: IBUPROFEN IV 600 MG in SODIUM CHLORIDE 0.9% 250 ML IV STA (14:50)
[2022-08-29 15:45] LABS: Basophils % (A) 0 %; Eosinophils % (A) 1 %; HCT 35.5 % (34.0-46.0); HGB 12.8 gm/dL (11.4-16.0); Lymphocytes # (A) 0.5 k/uL (1.0-4.8); Lymphocytes % (A) 12 %; MCH 34.5 pg (25.0-35.0); MCV 95.8 fL (80.0-100.0); Mean Platelet Volume 7.9; Monocytes # (A) 0.3 k/uL (0-1.0); Monocytes % (A) 9 %; Neutrophils % (A) 75 %; Platelet Count 149 k/uL (150-450); RBC 3.71 m/uL (3.80-5.40); RDW 12.4 % (11.5-15.5); WBC 3.9 k/uL (3.8-10.6)
--- NOTE | 2022-08-29 16:04 | XR ---
EXAMINATION TYPE: XR chest 2V DATE OF EXAM: 08/29/2022 4:00 PM COMPARISON: Chest radiographs from 10/22/2021 TECHNIQUE: XR chest 2V Frontal and lateral views of the chest. CLINICAL INDICATION:Female, 77 years old with history of difficulty breathing; FINDINGS: Lungs/Pleura: There is no evidence of pleural effusion, focal consolidation, or pneumothorax. Pulmonary vascularity: Unremarkable. Heart/mediastinum: Cardiomediastinal silhouette is unremarkable. Musculoskeletal: No acute osseous pathology. IMPRESSION: No acute cardiopulmonary disease/process.
[2022-08-29 16:09] LABS: Partial Thromboplastin Time 27.3 sec (22.0-30.0); Prothrombin Time 10.5 sec (9.0-12.0)
[2022-08-29 16:22] LABS: Albumin 4.3 g/dL (3.5-5.0); Calcium 9.3 mg/dL (8.4-10.2); Magnesium 1.2 mg/dL (1.6-2.3); Potassium 4.5 mmol/L (3.5-5.1); Total Bilirubin 1.1 mg/dL (0.2-1.3)
[2022-08-29 16:29] LABS: Appearance,Urine Clear (Clear); Bilirubin,Urine Negative (Negative); Blood,Urine Negative (Negative); Color,Urine Yellow; Glucose,Urine (UA) Negative (Negative); Ketones,Urine Negative (Negative); Leukocyte Esterase,Urine Negative (Negative); Nitrite,Urine Negative (Negative); Protein,Urine Trace (Negative); Specific Gravity,Urine 1.021 (1.001-1.035)
--- NOTE | 2022-08-29 17:02 | ED ---
General Adult HPI - General Chief complaint: Shortness of Breath Stated complaint: low blood pressure Time Seen by Provider: 08/29/22 14:16 Source: patient, family, RN notes reviewed, old records reviewed Mode of arrival: wheelchair Limitations: physical limitation - History of Present Illness Initial comments: This is a 77-year-old female who is brought in by family after they left the primary medical care doctor's office. He was sent here because the patient is having difficulty breathing is been ongoing for a few days and the patient becoming weaker and weaker. Patient family states that she does have a cough. But she does not put any chest pain. Patient denies any fever or chills. There has been no history of any vomiting diarrhea and the patient is significantly demented so she is not giving much of the details about comes from the family - Related Data Home Medications Medication Instructions Recorded Confirmed Atorvastatin [Lipitor] 20 mg PO DAILY 12/13/21 08/29/22 Levothyroxine Sodium [Synthroid] 112 mcg PO DAILY 12/13/21 08/29/22 Memantine [Namenda] 10 mg PO BID 12/13/21 08/29/22 Metoprolol Tartrate [Lopressor] 25 mg PO DAILY 12/13/21 08/29/22 Pantoprazole [Protonix] 40 mg PO DAILY 12/13/21 08/29/22 metFORMIN HCL [Glucophage] 500 mg PO BID 12/13/21 08/29/22 Ipratropium [place] 0.06%Nasal 2 spr EA NOSTRIL TID PRN 08/29/22 08/29/22 [Atrovent Nasal 0.06%] Sacubitril/Valsartan [Entresto 24 1 tab PO BID 08/29/22 08/29/22 mg-26 mg Tablet] Spironolactone 25 mg PO Q48H 08/29/22 08/29/22 Allergies Allergy/AdvReac Type Severity Reaction Status Date / Time No Known Allergies Allergy Verified 08/29/22 15:53 Review of Systems ROS Statement: Those systems with pertinent positive or pertinent negative responses have been documented in the HPI. ROS Other: All systems not noted in ROS Statement are negative. Past Medical History Past Medical History: Cancer, Diabetes Mellitus, GERD/Reflux, Hypertension, Memory Impairment, Musculoskeletal Disorder, Osteoarthritis (OA), Thyroid Disorder Additional Past Medical History / Comment(s): hx. LUNG NODULE- not aware of this, MIGRAINES not as often, basal cell skin cancer, sciatic back pain, dementia, "mucus collects in throat & she hacks up", but denies she has a cough, chronic sinus problems History of Any Multi-Drug Resistant Organisms: None Reported Past Surgical History: Appendectomy, Hysterectomy Additional Past Surgical History / Comment(s): BILATERAL CATARACTS/LENS IMPLANT. DEVIATED SEPTUM X 2. PAIN PROCEDURE (NECK). sinus surg. Past Anesthesia/Blood Transfusion Reactions: No Reported Reaction Additional Past Anesthesia/Blood Transfusion Reaction / Comment(s): HX MULT BLOOD TRANSFUSIONS AT AGE 1 WITHOUT DIFF. Past Psychological History: Depression Smoking Status: Former smoker Past Alcohol Use History: None Reported Past Drug Use History: None Reported - Past Family History Mother Family Medical History: Cancer Additional Family Medical History / Comment(s): LUNG CANCER. Sister(s) Family Medical History: Cancer Additional Family Medical History / Comment(s): RECTAL CANCER. Father Family Medical History: Myocardial Infarction (AL) Additional Family Medical History / Comment(s): Father from a AL in his early 70's. General Exam - General Exam Comments Initial Comments: GENERAL: Patient is well-developed and well-nourished. Patient is nontoxic and well- hydrated and is in mild distress. ENT: Neck is soft and supple. No significant lymphadenopathy is noted. Oropharynx is clear. Moist mucous membranes. Neck has full range of motion without eliciting any pain. EYES: The sclera were anicteric and conjunctiva were pink and moist. Extraocular movements were intact and pupils were equal round and reactive to light. Eyelids were unremarkable. PULMONARY: Unlabored respirations. Good breath sounds bilaterally. No audible rales rhonchi or wheezing was noted. CARDIOVASCULAR: There is a regular rate and rhythm without any murmurs gallops or rubs. ABDOMEN: Soft and nontender with normal bowel sounds. SKIN: Skin is clear with no lesions or rashes and otherwise unremarkable. NEUROLOGIC: Patient is alert and oriented 2. Cranial nerves II through XII are grossly intact. Motor and sensory are also intact. Normal speech, volume and content. Symmetrical smile. MUSCULOSKELETAL: Normal extremities with adequate strength and full range of motion. No lower extremity swelling or edema. No calf tenderness. LYMPHATICS: No significant lymphadenopathy is noted PSYCHIATRIC: Normal psychiatric evaluation. Limitations: physical limitation Course Vital Signs 08/29/22 08/29/22 08/29/22 14:10 15:39 15:47 Temperature 98.7 F 100.5 F H Pulse Rate 105 H 100 Respiratory 22 20 24 Rate Blood Pressure 125/84 129/85 O2 Sat by Pulse 97 98 Oximetry 08/29/22 08/29/22 16:00 17:00 Temperature 100.1 F H Pulse Rate 80 68 Respiratory 20 16 Rate Blood Pressure 130/60 104/60 O2 Sat by Pulse 98 96 Oximetry Medical Decision Making - Medical Decision Making EKG is interpreted by myself shows a sinus tachycardia at 100 bpm [place] interval 229 QRS is 96 Q-T intervals 362 QTC is 419. Patient's EKG shows no ST segment elevation or depression. Was pt. sent in by a medical professional or institution (, PA, MANAGER SIMULATION, urgent care, hospital, or intermediate...) When possible be specific @ -Patient was sent in by the primary medical care doctor Did you speak to anyone other than the patient for history (EMS, parent, family, police, friend...)? What history was obtained from this source @ -Family gave all the history Did you review nursing and triage notes (agree or disagree)? Why? @ -I reviewed and agree with nursing and triage notes Were old charts reviewed (outside hosp., previous admission, EMS record, old EKG, old radiological studies, urgent care reports/EKG's, intermediate records)? Report findings @ -I reviewed prior lab work from prior visits on this patient Differential Diagnosis (chest pain, altered mental status, abdominal pain women, abdominal pain men, vaginal bleeding, weakness, fever, dyspnea, syncope, headache, dizziness, GI bleed, back pain, seizure, CVA, palpatations, mental health, musculoskeletal)? @ -Differential Dyspnea: Coronary syndrome, arrhythmia, tamponade, asthma, COPD, pulmonary embolism, pne umonia, pneumothorax, pulmonary effusion, anaphylaxis, diabetic ketoacidosis, flailed chest, pulmonary contusion, diaphragmatic rupture, anemia, neuromuscular, this is not meant to be an all-inclusive list. EKG interpreted by me (3pts min.). @ -As above X-rays interpreted by me (1pt min.). @ -Chest x-ray was interpreted by myself I see no acute abnormality. CT interpreted by me (1pt min.). @ -None done U/S interpreted by me (1pt. min.). @ -None done What testing was considered but not performed or refused? (CT, X-rays, U/S, labs)? Why? @ -None What meds were considered but not given or refused? Why? @ -None Did you discuss the management of the patient with other professionals (professionals i.e. DrVasquez, PA, MANAGER SIMULATION, lab, RT, psych nurse, social media community manager, club steward, teacher, sales promotion officer, assistant case manager)? Give summary @ -No Was smoking cessation discussed for >3mins.? @ -No Was critical care preformed (if so, how long)? @ -No Were there social determinants of health that impacted care today? How? (Homelessness, low income, unemployed, alcoholism, drug addiction, transportation, low edu. Level, literacy, decrease access to med. care, usp, rehab)? @ -No Was there de-escalation of care discussed even if they declined (Discuss DNR or withdrawal of care, Hospice)? DNR status @ -No What co-morbidities impacted this encounter? (DM, HTN, Smoking, COPD, CAD, Cancer, CVA, ARF, Chemo, Hep., AIDS, mental health diagnosis, sleep apnea, morbid obesity)? @ -None Was patient admitted / discharged? Hospital course, mention meds given and route, prescriptions, significant lab abnormalities, going to OR and other pertinent info. @ -Patient was never in any respiratory distress. X-ray of the chest showed no acute abnormality. Patient was RSV positive and family was comfortable taking the patient home Undiagnosed new problem with uncertain prognosis? @ -No Drug Therapy requiring intensive monitoring for toxicity (Heparin, Nitro, Insulin, Cardizem)? @ -No Were any procedures done? @ -No Diagnosis/symptom? @ -RSV Acute, or Chronic, or Acute on Chronic? @ -Acute Uncomplicated (without systemic symptoms) or Complicated (systemic symptoms)? @ -Uncomplicated Side effects of treatment? @ -No Exacerbation, Progression, or Severe Exacerbation? @ -No Poses a threat to life or bodily function? How? (Chest pain, [place], AL, pneumonia, PE, COPD, DKA, ARF, appy, cholecystitis, CVA, Diverticulitis, Homicidal, Suicidal, threat to staff... and all critical care pts) @ -No - Lab Data Result diagrams: 08/29/22 14:49 08/29/22 14:49 Lab Results 08/29/22 08/29/22 08/29/22 Range/Units 14:49 14:49 14:49 WBC 3.9 (3.8-10.6) k/uL RBC 3.71 L (3.80-5.40) m/uL Hgb 12.8 (11.4-16.0) gm/dL Hct 35.5 (34.0-46.0) % MCV 95.8 (80.0-100.0) fL MCH 34.5 (25.0-35.0) pg MCHC 36.0 (31.0-37.0) g/dL RDW 12.4 (11.5-15.5) % Plt Count 149 L (150-450) k/uL MPV 7.9 Neutrophils % 75 % Lymphocytes % 12 % Monocytes % 9 % Eosinophils % 1 % Basophils % 0 % Neutrophils # 3.0 (1.3-7.7) k/uL Lymphocytes # 0.5 L (1.0-4.8) k/uL Monocytes # 0.3 (0-1.0) k/uL Eosinophils # 0.0 (0-0.7) k/uL Basophils # 0.0 (0-0.2) k/uL PT 10.5 (9.0-12.0) sec INR 1.0 (<1.2) APTT 27.3 (22.0-30.0) sec Sodium (137-145) mmol/L Potassium (3.5-5.1) mmol/L Chloride (98-107) mmol/L Carbon Dioxide (22-30) mmol/L Anion Gap mmol/L BUN (7-17) mg/dL Creatinine (0.52-1.04) mg/dL Est GFR (CKD-EPI)AfAm (>60 ml/min/1.73 sqM) Est GFR (CKD-EPI)NonAf (>60 ml/min/1.73 sqM) Glucose (74-99) mg/dL Plasma Lactic Acid Terence (0.7-2.0) mmol/L Calcium (8.4-10.2) mg/dL Magnesium (1.6-2.3) mg/dL Total Bilirubin (0.2-1.3) mg/dL AST (14-36) U/L ALT (4-34) U/L Alkaline Phosphatase (38-126) U/L Troponin I (0.000-0.034) ng/mL Total Protein (6.3-8.2) g/dL Albumin (3.5-5.0) g/dL Urine Color Yellow Urine Appearance Clear (Clear) Urine pH 7.0 (5.0-8.0) Ur Specific [place] 1.021 (1.001-1.035) Urine Protein Trace H (Negative) Urine Glucose (UA) Negative (Negative) Urine Ketones Negative (Negative) Urine Blood Negative (Negative) Urine Nitrite Negative (Negative) Urine Bilirubin Negative (Negative) Urine Urobilinogen 8.0 (<2.0) mg/dL Ur Leukocyte Esterase Negative (Negative) Influenza Type A (PCR) (Not Detectd) Influenza Type B (PCR) (Not Detectd) RSV (PCR) (Not Detectd) SARS-CoV-2 (PCR) (Not Detectd) 08/29/22 08/29/22 08/29/22 Range/Units 14:49 14:49 14:49 WBC (3.8-10.6) k/uL RBC (3.80-5.40) m/uL Hgb (11.4-16.0) gm/dL Hct (34.0-46.0) % MCV (80.0-100.0) fL MCH (25.0-35.0) pg MCHC (31.0-37.0) g/dL RDW (11.5-15.5) % Plt Count (150-450) k/uL MPV Neutrophils % % Lymphocytes % % Monocytes % % Eosinophils % % Basophils % % Neutrophils # (1.3-7.7) k/uL Lymphocytes # (1.0-4.8) k/uL Monocytes # (0-1.0) k/uL Eosinophils # (0-0.7) k/uL Basophils # (0-0.2) k/uL PT (9.0-12.0) sec INR (<1.2) APTT (22.0-30.0) sec Sodium 135 L (137-145) mmol/L Potassium 4.5 (3.5-5.1) mmol/L Chloride 100 (98-107) mmol/L Carbon Dioxide 26 (22-30) mmol/L Anion Gap 9 mmol/L BUN 24 H (7-17) mg/dL Creatinine 0.91 (0.52-1.04) mg/dL Est GFR (CKD-EPI)AfAm 69 (>60 ml/min/1.73 sqM) Est GFR (CKD-EPI)NonAf 60 (>60 ml/min/1.73 sqM) Glucose 130 H (74-99) mg/dL Plasma Lactic Acid Terence 1.3 (0.7-2.0) mmol/L Calcium 9.3 (8.4-10.2) mg/dL Magnesium 1.2 L (1.6-2.3) mg/dL Total Bilirubin 1.1 (0.2-1.3) mg/dL AST 28 (14-36) U/L ALT 21 (4-34) U/L Alkaline Phosphatase 55 (38-126) U/L Troponin I 0.026 (0.000-0.034) ng/mL Total Protein 7.0 (6.3-8.2) g/dL Albumin 4.3 (3.5-5.0) g/dL Urine Color Urine Appearance (Clear) Urine pH (5.0-8.0) Ur Specific [place] (1.001-1.035) Urine Protein (Negative) Urine Glucose (UA) (Negative) Urine Ketones (Negative) Urine Blood (Negative) Urine Nitrite (Negative) Urine Bilirubin (Negative) Urine Urobilinogen (<2.0) mg/dL Ur Leukocyte Esterase (Negative) Influenza Type A (PCR) (Not Detectd) Influenza Type B (PCR) (Not Detectd) RSV (PCR) (Not Detectd) SARS-CoV-2 (PCR) (Not Detectd) 08/29/22 Range/Units 14:49 WBC (3.8-10.6) k/uL RBC (3.80-5.40) m/uL Hgb (11.4-16.0) gm/dL Hct (34.0-46.0) % MCV (80.0-100.0) fL MCH (25.0-35.0) pg MCHC (31.0-37.0) g/dL RDW (11.5-15.5) % Plt Count (150-450) k/uL MPV Neutrophils % % Lymphocytes % % Monocytes % % Eosinophils % % Basophils % % Neutrophils # (1.3-7.7) k/uL Lymphocytes # (1.0-4.8) k/uL Monocytes # (0-1.0) k/uL Eosinophils # (0-0.7) k/uL Basophils # (0-0.2) k/uL PT (9.0-12.0) sec INR (<1.2) APTT (22.0-30.0) sec Sodium (137-145) mmol/L Potassium (3.5-5.1) mmol/L Chloride (98-107) mmol/L Carbon Dioxide (22-30) mmol/L Anion Gap mmol/L BUN (7-17) mg/dL Creatinine (0.52-1.04) mg/dL Est GFR (CKD-EPI)AfAm (>60 ml/min/1.73 sqM) Est GFR (CKD-EPI)NonAf (>60 ml/min/1.73 sqM) Glucose (74-99) mg/dL Plasma Lactic Acid Terence (0.7-2.0) mmol/L Calcium (8.4-10.2) mg/dL Magnesium (1.6-2.3) mg/dL Total Bilirubin (0.2-1.3) mg/dL AST (14-36) U/L ALT (4-34) U/L Alkaline Phosphatase (38-126) U/L Troponin I (0.000-0.034) ng/mL Total Protein (6.3-8.2) g/dL Albumin (3.5-5.0) g/dL Urine Color Urine Appearance (Clear) Urine pH (5.0-8.0) Ur Specific [place] (1.001-1.035) Urine Protein (Negative) Urine Glucose (UA) (Negative) Urine Ketones (Negative) Urine Blood (Negative) Urine Nitrite (Negative) Urine Bilirubin (Negative) Urine Urobilinogen (<2.0) mg/dL Ur Leukocyte Esterase (Negative) Influenza Type A (PCR) Not Detected (Not Detectd) Influenza Type B (PCR) Not Detected (Not Detectd) RSV (PCR) Detected A (Not Detectd) SARS-CoV-2 (PCR) Not Detected (Not Detectd) Disposition Clinical Impression: RSV (acute bronchiolitis due to respiratory syncytial virus) Disposition: HOME SELF-CARE Instructions (If sedation given, give patient instructions): Respiratory Syncytial Virus (ED) Additional Instructions: Patient is to follow-up with the primary medical care doctor. Patient is to return to the emergency department is any worsening in symptoms or difficulty breathing. Is patient prescribed a controlled substance at d/c from ED?: No Referrals: Kenny Nichole MD [Primary Care Provider] - 1-2 days Time of Disposition: 17:55
[2022-08-29 17:43] VITALS: PULSE 68
[2022-08-29 18:17] VITALS: BP 110/60; RESP 20; TEMP 100
== END 2022-08-29 18:17 | disposition home or self-care (01) ==
LOC: EC 14:08
DX: J21.0 Acute bronchiolitis due to respiratory syncytial virus (principal); E11.9 Type 2 diabetes mellitus without complications; K21.9 Gastro-esophageal reflux disease without esophagitis; I10 Essential (primary) hypertension; M19.90 Unspecified osteoarthritis, unspecified site; E07.9 Disorder of thyroid, unspecified; F32.A Depression, unspecified; Z87.891 Personal history of nicotine dependence; Z79.890 Hormone replacement therapy; Z79.84 Long term (current) use of oral hypoglycemic drugs; Z79.899 Other long term (current) drug therapy; Z20.822 Contact with and (suspected) exposure to COVID-19
CPT/HCPCS: 99285 ×2; 96365; 96368 ×2; 96366 ×2; 36415; 93005; 80053; 83605; 83735; 84484; 85025; 85610; 85730; 81003; 87636; 71046; J0131; J1741

== ENCOUNTER 2023-01-22 09:15 | Observation (INO) | payer MEDICARE ==
[2023-01-22] MEDS ORDERED: KETOROLAC 15 MG/ML 1 ML VIAL IVP STA (10:24)
[2023-01-22] MEDS ORDERED: ONDANSETRON 4 MG/2 ML VIAL IVP STA (10:24)
[2023-01-22] MEDS ORDERED: SODIUM CHLORIDE 0.9% 1,000 ML IV STA ×2 (10:24→16:15)
[2023-01-22] MEDS ORDERED: PANTOPRAZOLE 40 MG/10 ML VIAL IVP STA (10:24)
[2023-01-22 10:51] LABS: Basophils % (A) 0 %; Eosinophils # (A) 0.2 k/uL (0-0.7); Eosinophils % (A) 5 %; HCT 33.8 % (34.0-46.0); HGB 11.3 gm/dL (11.4-16.0); Lymphocytes % (A) 30 %; MCH 32.6 pg (25.0-35.0); MCHC 33.5 g/dL (31.0-37.0); MCV 97.2 fL (80.0-100.0); Mean Platelet Volume 8.7; Monocytes # (A) 0.3 k/uL (0-1.0); Monocytes % (A) 8 %; Neutrophils # (A) 1.8 k/uL (1.3-7.7); Neutrophils % (A) 53 %; Platelet Count 156 k/uL (150-450); RBC 3.48 m/uL (3.80-5.40); WBC 3.3 k/uL (3.8-10.6)
[2023-01-22 11:03] LABS: ALT 21 U/L (4-34); AST 36 U/L (14-36); African American GFR (CKD) >90 (>60 ml/min/1.73 sqM); Alkaline Phosphatase 51 U/L (38-126); Amylase 86 U/L (30-110); Anion Gap 9 mmol/L; Blood Urea Nitrogen 13 mg/dL (7-17); Calcium 9.3 mg/dL (8.4-10.2); Carbon Dioxide 22 mmol/L (22-30); Chloride 106 mmol/L (98-107); Glucose 105 mg/dL (74-99); Lipase 247 U/L (23-300); Non-African American GFR(CKD) 84 (>60 ml/min/1.73 sqM); Potassium 4.6 mmol/L (3.5-5.1); Sodium 137 mmol/L (137-145); Total Bilirubin 1.1 mg/dL (0.2-1.3); Total Protein 6.4 g/dL (6.3-8.2)
[2023-01-22 11:04] LABS: Partial Thromboplastin Time 22.7 sec (22.0-30.0); Prothrombin Time 10.4 sec (9.0-12.0)
--- NOTE | 2023-01-22 11:47 | XR ---
EXAMINATION TYPE: XR chest 2V DATE OF EXAM: 01/22/2023 COMPARISON: 08/29/2022 INDICATION: Abdominal pain and acute mental status change TECHNIQUE: Frontal and lateral views of the chest are obtained. FINDINGS: The heart size is normal. The pulmonary vasculature is normal. The lungs are clear. IMPRESSION: 1. No acute pulmonary process.
[2023-01-22 12:40] LABS: Appearance,Urine Clear (Clear); Bilirubin,Urine Negative (Negative); Blood,Urine Negative (Negative); Color,Urine Colorless; Glucose,Urine (UA) Negative (Negative); Ketones,Urine Negative (Negative); Leukocyte Esterase,Urine Negative (Negative); Nitrite,Urine Negative (Negative); Protein,Urine Negative (Negative); Specific Gravity,Urine 1.007 (1.001-1.035); Urobilinogen,Urine <2.0 mg/dL (<2.0)
--- NOTE | 2023-01-22 12:41 | ED ---
General Adult HPI - General Chief complaint: Abdominal Pain Stated complaint: Diarrhea,low temp Abd Pain Time Seen by Provider: 01/22/23 09:48 Source: patient, RN notes reviewed, old records reviewed Mode of arrival: ambulatory Limitations: no limitations - History of Present Illness Initial comments: Patient is a 77-year-old female with past medical history remarkable for dementia, complaining of abdominal pain, diarrhea for the last 2 days. Patient also has hypertension. Baseline is alert and oriented 0. Presents with daughter who lives with the patient. Patient has been somewhat more weak, confused lately. She is concerned for possible infection and Covid or UTI. No nausea or vomiting. Patient apparently complains of lower abdominal pain which is nonspecific as well as joint pain. Patient otherwise acting her normal baseline. Patient's unreliable historian. Presents for further evaluation at this time. No coughing or fevers. No known sick contacts. Diarrhea has been light brown in color with no obvious bleeding. - Related Data Home Medications Medication Instructions Recorded Confirmed Atorvastatin [Lipitor] 20 mg PO DAILY 12/13/21 01/22/23 Levothyroxine Sodium [Synthroid] 112 mcg PO DAILY 12/13/21 01/22/23 Memantine [Namenda] 10 mg PO BID 12/13/21 01/22/23 Metoprolol Tartrate [Lopressor] 25 mg PO DAILY 12/13/21 01/22/23 metFORMIN HCL [Glucophage] 500 mg PO BID 12/13/21 01/22/23 Sacubitril/Valsartan [Entresto 24 1 tab PO BID 08/29/22 01/22/23 mg-26 mg Tablet] Spironolactone 25 mg PO Q48H 08/29/22 01/22/23 Gabapentin [Neurontin] 100 mg PO TID PRN 01/22/23 01/22/23 Mirtazapine 7.5 mg PO HS 01/22/23 01/22/23 QUEtiapine [SEROquel] 25 mg PO DAILY PRN 01/22/23 01/22/23 Previous Rx's Medication Instructions Recorded Gabapentin [Neurontin] 100 mg PO TID PRN 3 Days #9 cap 01/22/23 Allergies Allergy/AdvReac Type Severity Reaction Status Date / Time No Known Allergies Allergy Verified 01/22/23 10:01 Review of Systems ROS Statement: Those systems with pertinent positive or pertinent negative responses have been documented in the HPI. Review of Systems: CONST: Denies fever EYES: Denies blurry vision ENT: Denies nasal congestion C/V: Denies Chest pain RESP: Denies shortness of breath GI: Denies abdominal pain : Denies dysuria SKIN: Denies rash. MSK: Denies joint pain. NEURO: Denies headache ROS Other: All systems not noted in ROS Statement are negative. Past Medical History Past Medical History: Cancer, Diabetes Mellitus, GERD/Reflux, Hypertension, Memory Impairment, Musculoskeletal Disorder, Osteoarthritis (OA), Thyroid Disorder Additional Past Medical History / Comment(s): hx. LUNG NODULE- not aware of this, MIGRAINES not as often, basal cell skin cancer, sciatic back pain, dementia, "mucus collects in throat & she hacks up", but denies she has a cough, chronic sinus problems History of Any Multi-Drug Resistant Organisms: None Reported Past Surgical History: Appendectomy, Hysterectomy Additional Past Surgical History / Comment(s): BILATERAL CATARACTS/LENS IMPLANT. DEVIATED SEPTUM X 2. PAIN PROCEDURE (NECK). sinus surg. Past Anesthesia/Blood Transfusion Reactions: No Reported Reaction Additional Past Anesthesia/Blood Transfusion Reaction / Comment(s): HX MULT BLO OD TRANSFUSIONS AT AGE 1 WITHOUT DIFF. Past Psychological History: Depression Smoking Status: Former smoker Past Alcohol Use History: None Reported Past Drug Use History: None Reported - Past Family History Mother Family Medical History: Cancer Additional Family Medical History / Comment(s): LUNG CANCER. Sister(s) Family Medical History: Cancer Additional Family Medical History / Comment(s): RECTAL CANCER. Father Family Medical History: Myocardial Infarction ([place]) Additional Family Medical History / Comment(s): Father from a [place] in his early 70's. General Exam - General Exam Comments Initial Comments: General: Appears in no acute distress. HEAD: Normal with no signs of head trauma. EYES: PERRLA, EOMI, conjunctiva normal, no discharge. ENT: Hearing grossly intact, normal oropharynx. RESPIRATORY: Clear breath sounds bilaterally. No wheezes, rales, or rhonchi. C/V: Regular rate and rhythm. S1 and S2 auscultated, no edema, peripheral pulses 2+ and intact throughout ABD: Abdomen is soft, nontender and due to EXT: Normal range of motion, no obvious deformity SKIN: No rashes or lesions observed on exposed skin. NEURO: Alert and oriented 0-1. No focal neurological deficits. Limitations: no limitations Course Vital Signs 01/22/23 09:36 Temperature 98 F Pulse Rate 71 Respiratory 18 Rate Blood Pressure 113/68 O2 Sat by Pulse 96 Oximetry Medical Decision Making - Medical Decision Making Was pt. sent in by a medical professional or institution (, PA, DIRECTOR OF DEVELOPMENT, urgent care, hospital, or [facility]...) When possible be specific @ -No Did you speak to anyone other than the patient for history (EMS, parent, family, police, friend...)? What history was obtained from this source @ -Patient's daughter is at bedside and is the primary historian for the patient. Did you review nursing and triage notes (agree or disagree)? Why? @ -I reviewed and agree with nursing and triage notes Were old charts reviewed (outside hosp., previous admission, EMS record, old EKG, old radiological studies, urgent care reports/EKG's, [facility] records)? Report findings @ -Old charts reviewed Differential Diagnosis (chest pain, altered mental status, abdominal pain women, abdominal pain men, vaginal bleeding, weakness, fever, dyspnea, syncope, headache, dizziness, GI bleed, back pain, seizure, CVA, palpatations, mental health, musculoskeletal)? @ -Differential Weakness: Hypoglycemia, shock, sepsis, hyponatremia, anemia, infection, [place], ETOH, adverse medicine reaction, overdose, stroke, this is not meant to be an all-inclusive list. Differential Abdominal Pain Women: Appendicitis, Cholecystitis, diverticulosis, ischemic bowel, pancreatitis, hepatitis, UTI, gastroenteritis, AAA, incarcerated hernia, bowel obstruction, constipation, inflammatory bowel, hepatitis, peptic ulcer disease, splenic infarction, perforated viscus, vulvitis, ovarian torsion, PID, kidney stone, placenta abruption, this is not meant to be an all-inclusive list EKG interpreted by me (3pts min.). @ -None done X-rays interpreted by me (1pt min.). @ -Chest X-ray reveals no obvious acute cardio pulmonary process. CT interpreted by me (1pt min.). @ -CT imaging revealed no evidence of diverticulitis or other acute abdominal process. U/S interpreted by me (1pt. min.). @ -None done What testing was considered but not performed or refused? (CT, X-rays, U/S, labs)? Why? @ -None What meds were considered but not given or refused? Why? @ -None Did you discuss the management of the patient with other professionals (professionals i.e. , PA, DIRECTOR OF DEVELOPMENT, lab, RT, psych nurse, social science manager, social science research assistant, teacher, labor relations officer, manager of case)? Give summary @ -Discussed with case managementMell. See below for conversation. Discussed with the admitting physician Dr. Lundberg who accepted the patient. Was smoking cessation discussed for >3mins.? @ -No Was critical care preformed (if so, how long)? @ -No Were there social determinants of health that impacted care today? How? (Homelessness, low income, unemployed, alcoholism, drug addiction, transportation, low edu. Level, literacy, decrease access to med. care, group home, rehab)? @ -No Was there de-escalation of care discussed even if they declined (Discuss DNR or withdrawal of care, Hospice)? DNR status @ -Patient is DO NOT RESUSCITATE per patient's daughter who is at bedside. What co-morbidities impacted this encounter? (DM, HTN, Smoking, COPD, CAD, Cancer, CVA, ARF, Chemo, Hep., AIDS, mental health diagnosis, sleep apnea, morbid obesity)? @ -None Was patient admitted / discharged? Hospital course, mention meds given and route, prescriptions, significant lab abnormalities, going to OR and other pertinent info. @ -Based on the The patient's presentation and physical exam, I'm concerned for possible infectious etiology for the patient's current symptoms. We will obtain infectious labs as well as abdominal laboratory studies. CT abdomen and pelvis will also be obtained as patient is having diarrhea multiple or conjunctival pain with concern for diverticulitis. Patient's daughter was in agreement this plan. I will send within acceptable limits. Patient's laboratory studies are all within acceptable limits. Urine is still initially pending. She does have a slight leukopenia at 3.3 as well as a chronic anemia of 11.3. Patient is Covid positive. Electrolytes within acceptable limits. Chest x-ray showed no evidence of acute cardio pulmonary process. Discussed results with the patient's daughter. She would like the patient admitted for placement. Patient lives currently at home with who is also elderly and she believes is unable to care for her. Believe this is reasonable. CT imaging reveals no evidence of acute intra-abdominal process. After the patient at this time. I did speak with our case management team, Mell who after review determined that the patient would not meet criteria for placement anyways as the patient is not debilitated in terms of mobility. She did discuss this with the patient's daughter, and it was discovered that patient was waiting on admission to [facility]. Mell spoke with [facility], and due to the patient having active Covid infection they cannot take her at this time but can admit the patient 10 days after onset of symptoms. I discussed this with the patient's daughter. They expressed understanding. Patient is medically cleared for admission to [facility] 10 days after onset of symptoms, which began on 01/19/2023. Patient discharged home at this time. We are ready to discharge the patient home, however she had multiple softer blood pressures with systolics in the high 80s and mid 90s. Because of this, as well as her dehydration concerned she is not even drinking as much and is having diarrhea, we will admit for fluid hydration. Patient's family is understanding that this is not for placement. I spoke with Dr. lundberg of [facility] was in agreement with the plan. Patient was given an additional fluid bolus and placed on maintenance fluids. Patient admitted to observation. Undiagnosed new problem with uncertain prognosis? @ -No Drug Therapy requiring intensive monitoring for toxicity (Heparin, Nitro, Insulin, Cardizem)? @ -No Were any procedures done? @ -No Diagnosis/symptom? @ -Diarrhea, COVID-19 infection, dehydration Acute, or Chronic, or Acute on Chronic? @ -Acute Uncomplicated (without systemic symptoms) or Complicated (systemic symptoms)? @ -complicated Side effects of treatment? @ -none Exacerbation, Progression, or Severe Exacerbation] @ -no Poses a threat to life or bodily function? @ -Potentially yes - Lab Data Result diagrams: 01/22/23 10:32 01/22/23 10:32 Lab Results 01/22/23 01/22/23 01/22/23 Range/Units 10:32 10:32 10:32 WBC 3.3 L (3.8-10.6) k/uL RBC 3.48 L (3.80-5.40) m/uL Hgb 11.3 L (11.4-16.0) gm/dL Hct 33.8 L (34.0-46.0) % MCV 97.2 (80.0-100.0) fL MCH 32.6 (25.0-35.0) pg MCHC 33.5 (31.0-37.0) g/dL RDW 14.0 (11.5-15.5) % Plt Count 156 (150-450) k/uL MPV 8.7 Neutrophils % 53 % Lymphocytes % 30 % Monocytes % 8 % Eosinophils % 5 % Basophils % 0 % Neutrophils # 1.8 (1.3-7.7) k/uL Lymphocytes # 1.0 (1.0-4.8) k/uL Monocytes # 0.3 (0-1.0) k/uL Eosinophils # 0.2 (0-0.7) k/uL Basophils # 0.0 (0-0.2) k/uL PT 10.4 (9.0-12.0) sec INR 1.0 (<1.2) APTT 22.7 (22.0-30.0) sec Sodium (137-145) mmol/L Potassium (3.5-5.1) mmol/L Chloride (98-107) mmol/L Carbon Dioxide (22-30) mmol/L Anion Gap mmol/L BUN (7-17) mg/dL Creatinine (0.52-1.04) mg/dL Est GFR (CKD-EPI)AfAm (>60 ml/min/1.73 sqM) Est GFR (CKD-EPI)NonAf (>60 ml/min/1.73 sqM) Glucose (74-99) mg/dL Plasma Lactic Acid Terence (0.7-2.0) mmol/L Calcium (8.4-10.2) mg/dL Total Bilirubin (0.2-1.3) mg/dL AST (14-36) U/L ALT (4-34) U/L Alkaline Phosphatase (38-126) U/L Total Protein (6.3-8.2) g/dL Albumin (3.5-5.0) g/dL Amylase (30-110) U/L Lipase (23-300) U/L Urine Color Colorless Urine Appearance Clear (Clear) Urine pH 7.0 (5.0-8.0) Ur Specific [place] 1.007 (1.001-1.035) Urine Protein Negative (Negative) Urine Glucose (UA) Negative (Negative) Urine Ketones Negative (Negative) Urine Blood Negative (Negative) Urine Nitrite Negative (Negative) Urine Bilirubin Negative (Negative) Urine Urobilinogen <2.0 (<2.0) mg/dL Ur Leukocyte Esterase Negative (Negative) Influenza Type A (PCR) (Not Detectd) Influenza Type B (PCR) (Not Detectd) RSV (PCR) (Not Detectd) SARS-CoV-2 (PCR) (Not Detectd) 01/22/23 01/22/23 01/22/23 Range/Units 10:32 10:32 10:32 WBC (3.8-10.6) k/uL RBC (3.80-5.40) m/uL Hgb (11.4-16.0) gm/dL Hct (34.0-46.0) % MCV (80.0-100.0) fL MCH (25.0-35.0) pg MCHC (31.0-37.0) g/dL RDW (11.5-15.5) % Plt Count (150-450) k/uL MPV Neutrophils % % Lymphocytes % % Monocytes % % Eosinophils % % Basophils % % Neutrophils # (1.3-7.7) k/uL Lymphocytes # (1.0-4.8) k/uL Monocytes # (0-1.0) k/uL Eosinophils # (0-0.7) k/uL Basophils # (0-0.2) k/uL PT (9.0-12.0) sec INR (<1.2) APTT (22.0-30.0) sec Sodium 137 (137-145) mmol/L Potassium 4.6 (3.5-5.1) mmol/L Chloride 106 (98-107) mmol/L Carbon Dioxide 22 (22-30) mmol/L Anion Gap 9 mmol/L BUN 13 (7-17) mg/dL Creatinine 0.66 (0.52-1.04) mg/dL Est GFR (CKD-EPI)AfAm >90 (>60 ml/min/1.73 sqM) Est GFR (CKD-EPI)NonAf 84 (>60 ml/min/1.73 sqM) Glucose 105 H (74-99) mg/dL Plasma Lactic Acid Terence 1.4 (0.7-2.0) mmol/L Calcium 9.3 (8.4-10.2) mg/dL Total Bilirubin 1.1 (0.2-1.3) mg/dL AST 36 (14-36) U/L ALT 21 (4-34) U/L Alkaline Phosphatase 51 (38-126) U/L Total Protein 6.4 (6.3-8.2) g/dL Albumin 4.0 (3.5-5.0) g/dL Amylase 86 (30-110) U/L Lipase 247 (23-300) U/L Urine Color Urine Appearance (Clear) Urine pH (5.0-8.0) Ur Specific [place] (1.001-1.035) Urine Protein (Negative) Urine Glucose (UA) (Negative) Urine Ketones (Negative) Urine Blood (Negative) Urine Nitrite (Negative) Urine Bilirubin (Negative) Urine Urobilinogen (<2.0) mg/dL Ur Leukocyte Esterase (Negative) Influenza Type A (PCR) Not Detected (Not Detectd) Influenza Type B (PCR) Not Detected (Not Detectd) RSV (PCR) Not Detected (Not Detectd) SARS-CoV-2 (PCR) Detected A (Not Detectd) Disposition Clinical Impression: COVID-19 virus infection, Diarrhea, Dehydration Disposition: ADMITTED IP TO THIS HOSP Condition: Stable Instructions (If sedation given, give patient instructions): Coronavirus Disease 2019 (COVID-19) Additional Instructions: Patient is medically cleared for admission to [facility] 10 days after onset of Covid symptoms, which began on 01/19/23. Prescriptions: Gabapentin [Neurontin] 100 mg PO TID PRN 3 Days #9 cap PRN Reason: Pain Is patient prescribed a controlled substance at d/c from ED?: Yes Referrals: [facility] [[facility] Care Provider[facility] - 1-2 days Time of Disposition: 15:45
--- NOTE | 2023-01-22 13:16 | CT ---
EXAMINATION TYPE: CT abdomen pelvis w con CT DLP: 559.8 mGycm, Automated exposure control for dose reduction was used. DATE OF EXAM: 01/22/2023 12:56 PM COMPARISON: CT abdomen pelvis most recent from 08/26/2018 CLINICAL INDICATION:Female, 77 years old with history of abdominal pain; Abdominal pain TECHNIQUE: Axial CT of the abdomen and pelvis. Sagittal and coronal reformats were created on a [employer] workstation. Contrast used:100 ml mL of Isovue 300 with IV Contrast, (none if empty) Oral contrast used: without Oral Contrast (none if empty) FINDINGS: LOWER CHEST: Unremarkable ABDOMEN LIVER: Scattered low density probable hepatic cyst. GALLBLADDER AND BILE DUCTS: Unremarkable. PANCREAS: Unremarkable. SPLEEN: Unremarkable. ADRENAL GLANDS: Unremarkable. KIDNEYS AND URETERS: Previous right renal calculus is no longer visualized. There is mild dilation of the right collecting system which is somewhat mildly asymmetric. No obstructing calculus visualized. No evidence for left hydronephrosis or atelectasis. Simple appearing renal cysts bilaterally. PELVIS BLADDER: Unremarkable REPRODUCTIVE: Unremarkable. ABDOMEN & PELVIS STOMACH AND BOWEL: No evidence of bowel obstruction. Colonic diverticula most pronounced in the sigmo id colon. The colon is redundant with moderate stool burden. PERITONEUM/RETROPERITONEUM: No evidence of pneumoperitoneum or free fluid. 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 MUSCULOSKELETAL: No acute osseous abnormalities. Moderate disc degeneration changes are present throu ghout the thoracolumbar spine. LYMPH NODES: No gross evidence for lymphadenopathy. SOFT TISSUE/ABDOMINAL WALL: Unremarkable IMPRESSION: 1. Mild right hydronephrosis without evidence of obstructing calculus. Correlate for recently passed stone. Right renal calculus seen on prior in 2019 is not visualized on today's exam. 2. There is moderate amount of stool within the colon which is redundant with multiple colonic diver ticula. 3. Colonic diverticulosis. 4. No evidence of obstructing uropathy. 5. 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
[2023-01-22] MEDS ORDERED: SODIUM CHLORIDE 0.9% 1,000 ML IV ONE (16:15)
[2023-01-22] MEDS ORDERED: GABAPENTIN 100 MG CAP PO PRN (16:18)
[2023-01-22] MEDS ORDERED: QUEtiapine 25 MG TAB PO PRN (16:18)
[2023-01-22] MEDS ORDERED: KETOROLAC 15 MG/ML 1 ML VIAL IVP PRN (16:22)
[2023-01-22] MEDS ORDERED: ONDANSETRON 4 MG/2 ML VIAL IVP PRN (16:22)
[2023-01-22] MEDS ORDERED: NALOXONE 0.4 MG/ML 1 ML VIAL IV PRN (16:22)
[2023-01-22] MEDS ORDERED: SPIRONOLACTONE 25 MG TAB PO SCH (16:30)
[2023-01-22] MEDS ORDERED: DEXTROSE 50% SYRINGE 50 ML IVP PRN ×2 (16:48)
--- NOTE | 2023-01-22 16:52 | P.HPIM ---
History of Present Illness H&P Date: 01/22/23 Patient is a 77-year-old female with history of dementia, type 2 diabetes, dyslipidemia, hypertension, systolic heart failure, low ellipticals or disease presenting with with diarrhea, and worsening debility. Patient is a poor historian. Daughter at bedside. Claims that she has been having loose bowel movements for the last 2 days. Has also been complaining of minor abdominal pain. Denies any chest pain, shortness of breath, urinary complaints. No mental status changes. Plan is to get her to a nursing facility after this hospitalization. In the ED, temperature was 98, pulse 71, respiratory rate 18, blood pressure 13/68, saturating 96% on room air. WBC 3.3, including 11.3, sodium 137, potassium 4.6, bicarb 22, creatinine 0.66, lipase 250, urinalysis negative, COVI D-19 positive. Chest x-ray, independently interpreted, shows no acute process. CT abdomen and pelvis shows mild right hydronephrosis without evidence of obstructive calculus, moderate amount of stool within the colon, multiple colonic diverticula, infrarenal saccular aneurysm stable. Patient was slightly dehydrated and hypotensive in the ED, admitted for observation and fluid resuscitation. Pertinent positives and negatives as discussed in HPI, a complete review of systems was performed and all other systems are negative. Patient seen and examined at bedside. Vital signs reviewed General: nontoxic, no distress, appears at stated age Derm: warm, dry Head: atraumatic, normocephalic, symmetric Eyes: EOMI, no lid lag, anicteric sclera, pupils equal round reactive to light ENT: Nose and ears atraumatic Neck: No thyromegaly, supple Mouth: no lip lesion, mucus membranes moist Cardiovascular: S1S2 reg, no murmur, no edema Lungs: clear to auscultation bilateral, no rhonchi, no rales, no wheeze, no accessory muscle use Abdominal: soft, nontender to palpation, no guarding, no appreciable organomegaly Ext: no gross muscle atrophy, muscle strength muscle strength 5 out of 5 in all 4 extremities, no contractures Neuro: CN II-XII grossly intact Psych: Alert, oriented 1, appropriate affect Assessment/Plan: Active: Acute COVID-19 syndrome Diarrhea Dehydration Leukopenia, mild anemia History of systolic heart failure History of hypertension Type 2 diabetes -Continue supportive care with IV fluids 100 mL an hour -Continue telemetry -Repeat BMP and CBC tomorrow -Leukopenia and mild anemia likely in the setting of COVID-19 infection -hold antihypertensives this patient is slightly hypotensive -Hold metformin, started on sliding scale insulin Chronic: Dementia Hypothyroidism Dyslipidemia The patient is admitted with an anticipated less than 2 midnight stay as observation status for evaluation of diarrhea and dehydration. Surrogate decision-maker: Daughter CODE STATUS: DNR/DNI DVT prophylaxis: Lovenox Anticipated discharge date: 1-[address]: Home A total of 55 minutes was spent on the care of this complex patient more than 50% of the time was spent in counseling and care coordination. Past Medical History Past Medical History: Cancer, Diabetes Mellitus, GERD/Reflux, Hypertension, Memory Impairment, Musculoskeletal Disorder, Osteoarthritis (OA), Thyroid Disorder Additional Past Medical History / Comment(s): hx. LUNG NODULE- not aware of this, MIGRAINES not as often, basal cell skin cancer, sciatic back pain, rashawn ntia, "mucus collects in throat & she hacks up", but denies she has a cough, chronic sinus problems History of Any Multi-Drug Resistant Organisms: None Reported Past Surgical History: Appendectomy, Hysterectomy Additional Past Surgical History / Comment(s): BILATERAL CATARACTS/LENS IMPLANT. DEVIATED SEPTUM X 2. PAIN PROCEDURE (NECK). sinus surg. Past Anesthesia/Blood Transfusion Reactions: No Reported Reaction Additional Past Anesthesia/Blood Transfusion Reaction / Comment(s): HX MULT BLOOD TRANSFUSIONS AT AGE 1 WITHOUT DIFF. Past Psychological History: Depression Smoking Status: Former smoker Past Alcohol Use History: None Reported Past Drug Use History: None Reported - Past Family History Mother Family Medical History: Cancer Additional Family Medical History / Comment(s): LUNG CANCER. Sister(s) Family Medical History: Cancer Additional Family Medical History / Comment(s): RECTAL CANCER. Father Family Medical History: Myocardial Infarction ([place]) Additional Family Medical History / Comment(s): Father from a [place] in his early 70's. Medications and Allergies Home Medications Medication Instructions Recorded Confirmed Type Atorvastatin [Lipitor] 20 mg PO DAILY 12/13/21 01/22/23 History Levothyroxine Sodium [Synthroid] 112 mcg PO DAILY 12/13/21 01/22/23 History Memantine [Namenda] 10 mg PO BID 12/13/21 01/22/23 History Metoprolol Tartrate [Lopressor] 25 mg PO DAILY 12/13/21 01/22/23 History metFORMIN HCL [Glucophage] 500 mg PO BID 12/13/21 01/22/23 History Sacubitril/Valsartan [Entresto 24 1 tab PO BID 08/29/22 01/22/23 History mg-26 mg Tablet] Spironolactone 25 mg PO Q48H 08/29/22 01/22/23 History Gabapentin [Neurontin] 100 mg PO TID PRN 01/22/23 01/22/23 History Gabapentin [Neurontin] 100 mg PO TID PRN 3 Days #9 cap 01/22/23 Rx Mirtazapine 7.5 mg PO HS 01/22/23 01/22/23 History QUEtiapine [SEROquel] 25 mg PO DAILY PRN 01/22/23 01/22/23 History Allergies Allergy/AdvReac Type Severity Reaction Status Date / Time No Known Allergies Allergy Verified 01/22/23 10:01 Physical Exam Vitals: Vital Signs Temp Pulse Resp BP Pulse Ox 01/22/23 16:23 88 18 87/57 01/22/23 16:00 82 15 88/62 97 01/22/23 09:36 98 F 71 18 113/68 96 Intake and Output 01/22/23 01/22/23 01/22/23 06:59 14:59 22:59 Other: Weight 47.627 kg Results CBC & Chem 7: 01/22/23 10:32 01/22/23 10:32 Labs: Abnormal Lab Results - Last 24 Hours (Table) 01/22/23 01/22/23 01/22/23 Range/Units 10:32 10:32 10:32 WBC 3.3 L (3.8-10.6) k/uL RBC 3.48 L (3.80-5.40) m/uL Hgb 11.3 L (11.4-16.0) gm/dL Hct 33.8 L (34.0-46.0) % Glucose 105 H (74-99) mg/dL SARS-CoV-2 (PCR) Detected A (Not Detectd)
[2023-01-22] MEDS ORDERED: HALOPERIDOL LACTATE 5 MG/ML 1 ML VIAL IM STA (17:15)
[2023-01-22 17:26] LABS: Glucose,Whole Blood 93 mg/dL (70-110)
[2023-01-22] MEDS: INSULIN ASPART (NovoLOG) 100 UNIT/ML VIAL SQ SCH ×2 (17:31→21:18)
[2023-01-22] MEDS ORDERED: metFORMIN 500 MG TAB PO SCH (21:00)
[2023-01-22] MEDS ORDERED: SACUBITRIL/VALSARTAN 24 MG-26 MG TABLET PO SCH (21:00)
[2023-01-22] MEDS ORDERED: MIRTAZAPINE 15 MG TAB PO SCH (21:00)
[2023-01-22] MEDS: MEMANTINE 10 MG TAB PO SCH (21:01)
[2023-01-22 21:18] LABS: Glucose,Whole Blood 111 mg/dL (70-110)
[2023-01-23] MEDS ORDERED: LEVOTHYROXINE 112 MCG TAB PO SCH (06:30)
[2023-01-23 08:04] LABS: Glucose,Whole Blood 85 mg/dL (70-110)
[2023-01-23] MEDS: INSULIN ASPART (NovoLOG) 100 UNIT/ML VIAL SQ SCH ×3 (08:35→17:44)
[2023-01-23] MEDS ORDERED: METOPROLOL TARTRATE 25 MG TAB PO SCH (09:00)
[2023-01-23] MEDS ORDERED: ATORVASTATIN 20 MG TAB PO SCH (09:00)
[2023-01-23] MEDS: MEMANTINE 10 MG TAB PO SCH (10:45)
[2023-01-23 10:53] LABS: Basophils # (A) 0.02 X 10*3/uL (0.00-0.10); Basophils % (A) 0.5 %; Eosinophils % (A) 2.7 %; HCT 29.9 % (37.2-46.3); HGB 9.7 d/dL (12.0-15.0); Lymphocytes % (A) 30.1 %; MCH 32.7 pg (27.0-32.0); MCHC 32.4 d/dL (32.0-37.0); MCV 100.7 FL (80.0-97.0); Mean Platelet Volume 11.4 FL (9.5-12.2); Monocytes # (A) 0.52 X 10*3/uL (0.20-1.00); Monocytes % (A) 14.2 %; NRBC Per 100 WBC 0 X 10*3/uL (0.00-0.01); Neutrophils # (A) 1.91 X 10*3/uL (1.80-7.70); Neutrophils % (A) 52.2 %; Platelet Count 129 X 10*3/uL (140-440); RBC 2.97 X 10*6/uL (4.10-5.20); RDW 13.7 % (11.5-14.5); WBC 3.66 X 10*3/uL (4.50-10.00)
--- NOTE | 2023-01-23 10:57 | P.DS ---
Providers Date of admission: 01/22/23 16:23 Expected date of discharge: 01/23/23 Attending physician: Jim Man MD Primary care physician: Kenny Nichole MD Hospital Course: Discharge Diagnosis: Acute COVID-19 syndrome Diarrhea Dehydration Leukopenia, mild anemia History of systolic heart failure History of hypertension Type 2 diabetes Dementia Hypothyroidism Dyslipidemia Hospital Course: 77-year-old female with history of dementia, type 2 diabetes, dyslipidemia, hypertension, systolic heart failure, low ellipticals or disease presenting with with diarrhea, and worsening debility. In the ED, temperature was 98, pulse 71, respiratory rate 18, blood pressure 13/68, saturating 96% on room air. WBC 3.3, including 11.3, sodium 137, potassium 4.6, bicarb 22, creatinine 0.66, lipase 250, urinalysis negative, COVID-19 positive. Chest x-ray, independently interpreted, shows no acute process. CT abdomen and pelvis shows mild right hydronephrosis without evidence of obstructive calculus, moderate amount of stool within the colon, multiple colonic diverticula, infrarenal saccular aneurysm stable. Patient was slightly dehydrated and hypotensive in the ED, admitted for observation and fluid resuscitation. Blood pressure improved at the time of discharge. She will go home initially, and then [facility] on 01/29. Patient seen and examined at bedside. Vital signs reviewed and stable. General: nontoxic, no distress, appears at stated age Derm: warm, dry Head: atraumatic, normocephalic, symmetric Eyes: EOMI, no lid lag, anicteric sclera, pupils equal round reactive to light ENT: Nose and ears atraumatic Neck: No thyromegaly, supple Mouth: no lip lesion, mucus membranes moist Cardiovascular: S1S2 reg, no murmur, no edema Lungs: clear to auscultation bilateral, no rhonchi, no rales, no wheeze, no accessory muscle use Abdominal: soft, nontender to palpation, no guarding, no appreciable organomegaly Ext: no gross muscle atrophy, muscle strength muscle strength 5 out of 5 in all 4 extremities, no contractures Neuro: CN II-XII grossly intact Psych: Alert, oriented 1, appropriate affect A total of 36 minutes of time were spent preparing this complex discharge summary. Patient was discharged on 01/23/23 at 10:20. Patient Condition at Discharge: Stable Plan - Discharge Summary New Discharge Prescriptions: New Gabapentin [Neurontin] 100 mg PO TID PRN 3 Days #9 cap PRN Reason: Pain Continue metFORMIN HCL [Glucophage] 500 mg PO BID Atorvastatin [Lipitor] 20 mg PO DAILY Sacubitril/Valsartan [Entresto 24 mg-26 mg Tablet] 1 tab PO BID Spironolactone 25 mg PO Q48H QUEtiapine [SEROquel] 25 mg PO DAILY PRN PRN Reason: Agitation Metoprolol Tartrate [Lopressor] 25 mg PO DAILY Memantine [Namenda] 10 mg PO BID Levothyroxine Sodium [Synthroid] 112 mcg PO DAILY Mirtazapine 7.5 mg PO HS Discontinued Gabapentin [Neurontin] 100 mg PO TID PRN PRN Reason: Pain Discharge Medication List Atorvastatin [Lipitor] 20 mg PO DAILY 12/13/21 [History] Levothyroxine Sodium [Synthroid] 112 mcg PO DAILY 12/13/21 [History] Memantine [Namenda] 10 mg PO BID 12/13/21 [History] Metoprolol Tartrate [Lopressor] 25 mg PO DAILY 12/13/21 [History] metFORMIN HCL [Glucophage] 500 mg PO BID 12/13/21 [History] Sacubitril/Valsartan [Entresto 24 mg-26 mg Tablet] 1 tab PO BID 08/29/22 [History] Spironolactone 25 mg PO Q48H 08/29/22 [History] Gabapentin [Neurontin] 100 mg PO TID PRN 3 Days #9 cap 01/22/23 [Rx] Mirtazapine 7.5 mg PO HS 01/22/23 [History] QUEtiapine [SEROquel] 25 mg PO DAILY PRN 01/22/23 [History] Follow up Appointment(s)/Referral(s): Kenny Nichole MD [[facility] Care Provider[facility] - [facility] Patient Instructions/Handouts: Coronavirus Disease 2019 (COVID-19) Activity/Diet/Wound Care/Special Instructions: Patient is medically cleared for admission to [facility] 10 days after onset of Covid symptoms, which began on 01/19/23. Discharge Disposition: HOME SELF-CARE
[2023-01-23 11:10] LABS: BUN/Creat Ratio 11.88 Ratio (12.00-20.00); Blood Urea Nitrogen 9.5 mg/dL (9.0-27.0); Calcium 9.1 mg/dL (8.7-10.3); Carbon Dioxide 23.3 mmol/L (21.6-31.8); Chloride 108 mmol/L (96-109); Glucose 84 mg/dL (70-110); Potassium 4.1 mmol/L (3.5-5.5); Sodium 142 mmol/L (135-145)
[2023-01-23 11:55] LABS: Glucose,Whole Blood 116 mg/dL (70-110)
[2023-01-23 16:55] VITALS: BP 140/72; PULSE 75; RESP 16; TEMP 98.2
[2023-01-23 17:41] LABS: Glucose,Whole Blood 133 mg/dL (70-110)
== END 2023-01-23 18:55 | disposition home or self-care (01) ==
LOC: EC 09:15 → 6NMEDSUR 16:23
PROVIDERS: ADMIT Student in an Organized Health Care Education/Training Program; ATTEND Student in an Organized Health Care Education/Training Program
DX: U07.1 COVID-19 (principal); D72.818 Other decreased white blood cell count; E86.0 Dehydration; I95.9 Hypotension, unspecified; D64.9 Anemia, unspecified; K57.30 Diverticulosis of large intestine without perforation or abscess without bleeding; I11.0 Hypertensive heart disease with heart failure; I50.20 Unspecified systolic (congestive) heart failure; E11.9 Type 2 diabetes mellitus without complications; F03.90 Unspecified dementia, unspecified severity, without behavioral disturbance, psychotic disturbance, mood disturbance, and anxiety; E03.9 Hypothyroidism, unspecified; E78.5 Hyperlipidemia, unspecified; N13.30 Unspecified hydronephrosis; Z79.84 Long term (current) use of oral hypoglycemic drugs; Z79.899 Other long term (current) drug therapy
CPT/HCPCS: 96361 ×3; 96374; 96375; 99285; 51798; 36415; 80053; 80048; 82150; 83605; 83690; 85025 ×2; 85610; 85730; 81003; 87636; 71046; 74177; G0378 ×2; J1630; J2405; J1885; C9113; Q9967